=== PATIENT | female | born 1965 | race Caucasian/White ===

== ENCOUNTER 2018-07-11 12:15 | Inpatient (IN) ==
--- NOTE | 2018-07-11 12:56 | ED ---
HPI General Chief complaint: Shortness of Breath/Dyspnea Stated complaint: Body Pain Complaint Time Seen by Provider: 07/11/18 12:26 Source: patient and RN notes reviewed Limitations: no limitations History of Present Illness HPI narrative: 53-year-old female presents to the emergency department stating she has "all over swelling" for 2 weeks. She reports swelling to her legs, abdomen, face. She also reports upper abdominal pain for 1 week. She states the current pain is 8/10. When asked to describe it she states it is "out". She states she was short of breath this morning, but she states that she is no longer short of breath. She denies any chest pain. No previous surgeries. When reviewing the chart, it appears the patient was last here in 2011 and had history of alcoholism and alcohol induced pancreatitis. She also an unconfirmed history of stroke and seizure disorder. She was admitted to rehab for Wernicke Korsakoff type pathology due to her alcoholism. However, she denies any history of liver disease. She states she used to drink alcohol, but has not drank since 2009. Patient states she is not currently on any medications. She states her abdomen is distended. She also states that she has trouble moving her legs and states they "do not work". However she states she has had this issue for a long time, but has been worse for the past month. It appears back in 2011, she had the same issue with difficulty to ambulate at that time. Moderate severity. Onset (ago): week(s) (2) Location: abdomen Radiation: non-radiation Severity: moderate Severity scale (1-10): 8 Quality: aching Pain Consistency: constant Relieving factors: none Exacerbating factors: none Associated symptoms: Reports shortness of breath and weakness; Denies confusion , chest pain, fever/chills, headaches, nausea/vomiting and syncope Related Data Home Medications Medication Instructions Recorded Confirmed No Known Home Medications 07/11/18 07/11/18 Allergies Allergy/AdvReac Type Severity Reaction Status Date / Time doxycycline Allergy Severe Lethargy Verified 07/11/18 12:43 minocycline Allergy Severe Lethargy Verified 07/11/18 12:43 Sulfa (Sulfonamide Allergy Severe RASH Verified 07/11/18 12:43 Antibiotics) tigecycline Allergy Severe Lethargy Verified 07/11/18 12:43 Review of Systems ROS: all other systems reviewed are negative [facility] Medical History Medical History SVT (supraventricular tachycardia) (Acute) Surgical History Surgical History No history of previous surgery (Acute) Social History Social History Substance History: No History of Abuse Second Hand Smoke Exposure: No Smoking Status: Never smoker Tobacco Type: Cigarettes How Often Do You Have a Drink Containing Alcohol: Never Recent Travel in [facility] within the Last 8 Weeks: No Recent Out of Country Travel within the Last 8 Weeks: No Immunization History Tetanus Immunization: >5 Years Exam Narrative Exam Narrative: GENERAL: Well-nourished, well-developed female patient, afebrile. SKIN: Focused skin assessment warm/dry. HEAD: Normocephalic. Atraumatic. EYES: No scleral icterus. No injection or drainage. NECK: Supple, trachea midline. No JVD or lymphadenopathy. CARDIOVASCULAR: Regular rate and rhythm without murmurs, gallops, or rubs. RESPIRATORY: Breath sounds equal bilaterally. No accessory muscle use. Lung sounds are clear to auscultation GASTROINTESTINAL: Abdomen soft and nondistended. She reports tenderness over the epigastric region MUSCULOSKELETAL: No cyanosis. 2+ bilateral lower extremity edema. BACK: Nontender without obvious deformity. No CVA tenderness. Course Initial Documented Vital Signs Temperature 97.7 F 07/11/18 12:21 Pulse Rate 89 07/11/18 12:21 Respiratory Rate 16 07/11/18 12:21 Blood Pressure 116/60 07/11/18 12:21 Pulse Oximetry 99 07/11/18 12:21 Last Documented Vital Signs Temperature 98.0 F 07/13/18 04:00 Pulse Rate 76 07/13/18 06:18 Respiratory Rate 18 07/13/18 06:18 Blood Pressure 101/61 07/13/18 06:18 Pulse Oximetry 96 07/13/18 06:18 Medical Decision Making TANVI Attestation TANVI supervised visit: Yes Attestation: No signs of acute surgical abdomen or airway compromise MDM Narrative Medical decision making narrative: 53-year-old female presents to the emergency department for evaluation of swelling, shortness of breath this morning, abdominal pain. According the chart, she has history of alcoholism and pancreatitis. She had issues with her legs back in 2012 as well. She does not follow with a primary care physician. IV access obtained. EKG, CBC, CMP, lipase, magnesium, CK, troponin, PTT, PT/INR, alcohol level, UA are ordered and pending. Chest x-ray, CT abdomen/pelvis with IV contrast ordered and pending. EKG shows sinus rhythm, heart rate 75, no acute ST changes. CBC shows no acute abnormality. CMP shows hypokalemia at 2.8, bilirubin 1.6, AST 51. Lipase is 48. Magnesium is 2.2. CK is 56. Troponin is less than 0.02. BNP is 42. PTT is 24.0. PT/INR is 11.4/1.1. Alcohol level is less than 3. Chest x-ray shows no acute cardiopulmonary disease. CT abdomen/pelvis shows Enlarged fatty liver ; Large amount of ascites; Thick-walled nondistended gallbladder with pericholecystic fluid. If there is clinical concern for acute cholecystitis, a hepatobiliary scan may be helpful to confirm cystic duct obstruction; Retroperitoneal lymphadenopathy is nonspecific; Mild diffuse wall thickening involving the descending colon, sigmoid colon and rectum raising possibility of mild colitis. Clinical correlation is recommended; Severe ureteropelvicaliectasis on the right secondary to a large calcified obstructing distal ureteral calculus at the S1 level measuring 16 mm; Small right kidney with diffuse cortical thinning related to probable chronic obstruction; Calcified nonobstructing right renal calculi; 4.7 x 1.7 x 2.3 cm right adrenal nodule which is nonspecific; Chronic calcific pancreatitis; Degenerative changes and scoliosis of the thoracolumbar spine. Blood cultures are ordered and pending. Patient is given Zosyn 3.375 g IV for possible cholecystitis. Patient will be admitted for hypokalemia, possible cholecystitis, 16 mm ureteral calculus, and needs further work up for bilateral leg weakness. Medical Screen Exam Complete: Yes Emergency Medical Condition: Yes Differential Diagnosis Differential Diagnosis: Acute pancreatitis versus liver cirrhosis versus liver failure versus ascites versus CHF versus ACS versus pneumonia Medical Records Medical records reviewed: Yes I reviewed the patient's medical records. Lab Data Result diagrams: 07/12/18 09:29 07/12/18 09:29 Lab Results 01/10/19 01/10/19 01/10/19 Range/Units 12:45 12:45 12:45 WBC 4.1 (4.0-11.0) th/mm3 RBC 3.17 L (4.00-5.30) mil/mm3 Hgb 12.2 (11.6-15.3) gm/dL Hct 35.0 (35.0-46.0) % MCV 110.5 H (80.0-100.0) fL MCH 38.5 H (27.0-34.0) pg MCHC 34.8 (32.0-36.0) % RDW 14.6 (11.6-17.2) % Plt Count 204 (150-450) th/mm3 MPV 7.8 (7.0-11.0) fL Neut % (Auto) 67.4 (16.0-70.0) % Lymph % (Auto) 18.4 (9.0-44.0) % Mclean % (Auto) 13.2 H (0.0-8.0) % Eos % (Auto) 0.3 (0.0-4.0) % Baso % (Auto) 0.7 (0.0-2.0) % Neut # (Auto) 2.8 (1.8-7.7) th/mm3 Lymph # (Auto) 0.8 L (1.0-4.8) th/mm3 Mclean # (Auto) 0.5 (0.0-0.9) th/mm3 Eos # (Auto) 0.0 (0.0-0.4) th/mm3 Baso # (Auto) 0.0 (0.0-0.2) th/mm3 WBC Differential . Differential Comment Auto diff final PT 11.4 (9.8-11.6) sec INR 1.1 Ratio APTT 24.0 (23.4-31.7) sec Sodium 143 (136-145) meq/L Potassium 2.8 L* (3.5-5.1) meq/L Chloride 110 H (98-107) meq/L Carbon Dioxide 26.7 (21.0-32.0) meq/L Anion Gap 6 (5-15) meq/L BUN 8 (7-18) mg/dL Creatinine 0.63 (0.50-1.00) mg/dL Estimated GFR Greater than 89 (>89) mL/min Random Glucose 95 (74-106) mg/dL Calcium 7.9 L (8.5-10.1) mg/dL Magnesium 2.2 (1.5-2.5) mg/dL Total Bilirubin 1.6 H (0.2-1.0) mg/dL AST 51 H (15-37) U/L ALT 38 (10-53) U/L Alkaline Phosphatase 253 H (45-117) U/L Total Creatine Kinase 56 (26-192) U/L Troponin I Less than 0.02 L (0.02-0.05) ng/mL B-Natriuretic Peptide (0-100) pg/mL Total Protein 6.1 L (6.4-8.2) g/dL Albumin 2.8 L (3.4-5.0) g/dL Lipase 48 L (73-393) U/L Vitamin B12 (193-986) pg/mL Folate (3.1-17.5) ng/mL Urine Color (Yellw/Straw) Urine Clarity (Clear) Urine pH (5.0-8.5) Ur Specific [place] (1.002-1.035) Urine Protein (Neg-Trace) mg/dL Urine Glucose (UA) (Negative) mg/dL Urine Ketones (Negative) mg/dL Urine Occult Blood (Negative) Urine Nitrate (Negative) Urine Bilirubin (Negative) Urine Urobilinogen (Less than 2) mg/dL Ur Leukocyte Esterase (Negative) Urine RBC (0-3) /hpf Urine WBC (0-5) /hpf Ur Squamous Epith Cells (0-5) /hpf Calcium Oxalate Crystal (None) /hpf Urine Bacteria (None) /hpf Micro UA Comment Ur Microscopic Review Urine Culture Comments Serum Alcohol Less than 3 (0-5) mg/dL Hep Bs Antigen (Nonreactive) Hep Bs Antibody mIU/mL Hep B Core IgM Ab (Nonreactive) Hep C IgG Ab (Nonreactive) 07/11/18 07/11/18 07/11/18 Range/Units 12:45 21:14 21:14 WBC (4.0-11.0) th/mm3 RBC (4.00-5.30) mil/mm3 Hgb (11.6-15.3) gm/dL Hct (35.0-46.0) % MCV (80.0-100.0) fL MCH (27.0-34.0) pg MCHC (32.0-36.0) % RDW (11.6-17.2) % Plt Count (150-450) th/mm3 MPV (7.0-11.0) fL Neut % (Auto) (16.0-70.0) % Lymph % (Auto) (9.0-44.0) % Mclean % (Auto) (0.0-8.0) % Eos % (Auto) (0.0-4.0) % Baso % (Auto) (0.0-2.0) % Neut # (Auto) (1.8-7.7) th/mm3 Lymph # (Auto) (1.0-4.8) th/mm3 Mclean # (Auto) (0.0-0.9) th/mm3 Eos # (Auto) (0.0-0.4) th/mm3 Baso # (Auto) (0.0-0.2) th/mm3 WBC Differential Differential Comment PT (9.8-11.6) sec INR Ratio APTT (23.4-31.7) sec Sodium (136-145) meq/L Potassium (3.5-5.1) meq/L Chloride (98-107) meq/L Carbon Dioxide (21.0-32.0) meq/L Anion Gap (5-15) meq/L BUN (7-18) mg/dL Creatinine (0.50-1.00) mg/dL Estimated GFR (>89) mL/min Random Glucose (74-106) mg/dL Calcium (8.5-10.1) mg/dL Magnesium (1.5-2.5) mg/dL Total Bilirubin (0.2-1.0) mg/dL AST (15-37) U/L ALT (10-53) U/L Alkaline Phosphatase (45-117) U/L Total Creatine Kinase (26-192) U/L Troponin I (0.02-0.05) ng/mL B-Natriuretic Peptide 42 (0-100) pg/mL Total Protein (6.4-8.2) g/dL Albumin (3.4-5.0) g/dL Lipase (73-393) U/L Vitamin B12 1918 H (193-986) pg/mL Folate Greater than 20.0 H (3.1-17.5) ng/mL Urine Color (Yellw/Straw) Urine Clarity (Clear) Urine pH (5.0-8.5) Ur Specific [place] (1.002-1.035) Urine Protein (Neg-Trace) mg/dL Urine Glucose (UA) (Negative) mg/dL Urine Ketones (Negative) mg/dL Urine Occult Blood (Negative) Urine Nitrate (Negative) Urine Bilirubin (Negative) Urine Urobilinogen (Less than 2) mg/dL Ur Leukocyte Esterase (Negative) Urine RBC (0-3) /hpf Urine WBC (0-5) /hpf Ur Squamous Epith Cells (0-5) /hpf Calcium Oxalate Crystal (None) /hpf Urine Bacteria (None) /hpf Micro UA Comment Ur Microscopic Review Urine Culture Comments Serum Alcohol (0-5) mg/dL Hep Bs Antigen Nonreactive (Nonreactive) Hep Bs Antibody 8.52 mIU/mL Hep B Core IgM Ab Nonreactive (Nonreactive) Hep C IgG Ab Nonreactive (Nonreactive) 07/12/18 07/12/18 07/12/18 Range/Units 04:12 09:29 09:29 WBC 3.1 L (4.0-11.0) th/mm3 RBC 2.74 L (4.00-5.30) mil/mm3 Hgb 10.3 L (11.6-15.3) gm/dL Hct 30.7 L (35.0-46.0) % MCV 112.2 H (80.0-100.0) fL MCH 37.7 H (27.0-34.0) pg MCHC 33.6 (32.0-36.0) % RDW 14.4 (11.6-17.2) % Plt Count 171 (150-450) th/mm3 MPV 7.5 (7.0-11.0) fL Neut % (Auto) 59.3 (16.0-70.0) % Lymph % (Auto) 24.1 (9.0-44.0) % Mclean % (Auto) 14.5 H (0.0-8.0) % Eos % (Auto) 1.3 (0.0-4.0) % Baso % (Auto) 0.8 (0.0-2.0) % Neut # (Auto) 1.8 (1.8-7.7) th/mm3 Lymph # (Auto) 0.7 L (1.0-4.8) th/mm3 Mclean # (Auto) 0.4 (0.0-0.9) th/mm3 Eos # (Auto) 0.0 (0.0-0.4) th/mm3 Baso # (Auto) 0.0 (0.0-0.2) th/mm3 WBC Differential . Differential Comment Auto diff final PT (9.8-11.6) sec INR Ratio APTT (23.4-31.7) sec Sodium 144 (136-145) meq/L Potassium 4.4 D (3.5-5.1) meq/L Chloride 111 H (98-107) meq/L Carbon Dioxide 26.5 (21.0-32.0) meq/L Anion Gap 7 (5-15) meq/L BUN 9 (7-18) mg/dL Creatinine 0.79 (0.50-1.00) mg/dL Estimated GFR 76 L (>89) mL/min Random Glucose 94 (74-106) mg/dL Calcium 8.2 L (8.5-10.1) mg/dL Magnesium (1.5-2.5) mg/dL Total Bilirubin 1.0 (0.2-1.0) mg/dL AST 47 H (15-37) U/L ALT 36 (10-53) U/L Alkaline Phosphatase 236 H (45-117) U/L Total Creatine Kinase (26-192) U/L Troponin I (0.02-0.05) ng/mL B-Natriuretic Peptide (0-100) pg/mL Total Protein 5.6 L (6.4-8.2) g/dL Albumin 2.4 L (3.4-5.0) g/dL Lipase (73-393) U/L Vitamin B12 (193-986) pg/mL Folate (3.1-17.5) ng/mL Urine Color [place] (Yellw/Straw) Urine Clarity Hazy H (Clear) Urine pH 5.0 (5.0-8.5) Ur Specific [place] Greater than 1.060 H (1.002-1.035) Urine Protein Negative (Neg-Trace) mg/dL Urine Glucose (UA) Negative (Negative) mg/dL Urine Ketones Negative (Negative) mg/dL Urine Occult Blood Negative (Negative) Urine Nitrate Positive H (Negative) Urine Bilirubin Negative (Negative) Urine Urobilinogen Less than 2 (Less than 2) mg/dL Ur Leukocyte Esterase Small H (Negative) Urine RBC 2 (0-3) /hpf Urine WBC 16 H (0-5) /hpf Ur Squamous Epith Cells 6 (0-5) /hpf Calcium Oxalate Crystal Few H (None) /hpf Urine Bacteria Occasional H (None) /hpf Micro UA Comment Culture indicated Ur Microscopic Review Not Reportable Urine Culture Comments Culture indicated Serum Alcohol (0-5) mg/dL Hep Bs Antigen (Nonreactive) Hep Bs Antibody mIU/mL Hep B Core IgM Ab (Nonreactive) Hep C IgG Ab (Nonreactive) Imaging Data Radiologist's impression: Abdomen Ultrasound 07/11/18 00:00 CONCLUSION: 1. Coarsened parenchymal echotexture with nodular hepatic contour. These findings can be seen in the setting of cirrhosis. Recommend clinical correlation. 2. Moderate amount of ascites, which may be related to underlying liver dysfunction. 3. Diffuse gallbladder wall thickening. This is a nonspecific finding, often seen in the setting of liver disease. No evidence of cholelithiasis. Negative sonographic Cherry sign. 4. Dilation of the common bile duct to 14 mm. If clinically warranted, MRCP could be performed for further evaluation. 5. Numerous calcifications within the pancreas, suggesting chronic pancreatitis. 6. Severe right hydronephrosis with right lower pole renal calculi. Lumbar Spine MRI 07/11/18 00:00 CONCLUSION: 1. Mild bilateral foraminal narrowing at L3-4, L4-5 and L5-S1 without spinal stenosis. 2. Degenerative disc disease L3-4, L4-5 and L5-S1. 3. No focal disc herniation. 4. No abnormal enhancing lesion. 5. Severe hydronephrosis on the right. Abdomen/Pelvis CT 07/11/18 12:38 CONCLUSION: 1. Enlarged fatty liver. 2. Large amount of ascites. 3. Thick-walled nondistended gallbladder with pericholecystic fluid. If there is clinical concern for acute cholecystitis, a hepatobiliary scan may be helpful to confirm cystic duct obstruction. 4. Retroperitoneal lymphadenopathy is nonspecific. 5. Mild diffuse wall thickening involving the descending colon, sigmoid colon and rectum raising possibility of mild colitis. Clinical correlation is recommended. 6. Severe ureteropelvicaliectasis on the right secondary to a large calcified obstructing distal ureteral calculus at the S1 level measuring 16 mm. 7. Small right kidney with diffuse cortical thinning related to probable chronic obstruction. 8. Calcified nonobstructing right renal calculi. 9. 4.7 x 1.7 x 2.3 cm right adrenal nodule which is nonspecific. 10. Chronic calcific pancreatitis. 11. Degenerative changes and scoliosis of the thoracolumbar spine. Chest X-Ray 07/11/18 12:38 CONCLUSION: No acute cardiopulmonary disease Discharge Plan Discharge Disposition Patient Disposition: ED Admit(ED Internal Use Only) Discharge Order Discharge Orders: ED Use Only Admit Order (Routine); Ordered 07/11/18 Ordered By: Samantha Davison Discharge Details Diagnosis: Acute hypokalemia, Cholecystitis, Calculus, ureteral, Bilateral leg weakness Physicians Team ED Provider: Kevin Oleary ED Midlevel Provider: Samantha Davison Primary Care Provider: Primary Care Wilbur,Supriya Attending Provider: Glenn Flynn Other Providers: Chadd Arreaga Status ED Status: Left Department Discharge Information Discharge Date/Time: 07/11/18 17:53
[2018-07-11 13:00] LABS: Baso % (Auto) 0.7 % (0.0-2.0); Eos % (Auto) 0.3 % (0.0-4.0); Hemoglobin 12.2 gm/dL (11.6-15.3); Lymph # (Auto) 0.8 th/mm3 (1.0-4.8); Lymph % (Auto) 18.4 % (9.0-44.0); Mean Corpuscular HGB Conc 34.8 % (32.0-36.0); Mean Corpuscular Hemoglobin 38.5 pg (27.0-34.0); Mean Corpuscular Volume 110.5 fL (80.0-100.0); Mean Platelet Volume 7.8 fL (7.0-11.0); Mono # (Auto) 0.5 th/mm3 (0.0-0.9); Mono % (Auto) 13.2 % (0.0-8.0); Neut # (Auto) 2.8 th/mm3 (1.8-7.7); Neut % (Auto) 67.4 % (16.0-70.0); Platelet Count 204 th/mm3 (150-450); Red Blood Count 3.17 mil/mm3 (4.00-5.30); Red Cell Distribution Width 14.6 % (11.6-17.2); White Blood Count 4.1 th/mm3 (4.0-11.0)
[2018-07-11 13:04] LABS: INR 1.1 Ratio; Prothrombin Time 11.4 sec (9.8-11.6)
[2018-07-11 13:15] LABS: Alanine Aminotransferase 38 U/L (10-53); Albumin 2.8 g/dL (3.4-5.0); Anion Gap 6 meq/L (5-15); Aspartate Aminotransferase 51 U/L (15-37); Blood Urea Nitrogen 8 mg/dL (7-18); Calcium 7.9 mg/dL (8.5-10.1); Carbon Dioxide 26.7 meq/L (21.0-32.0); Chloride 110 meq/L (98-107); Glomerular Filtration Rate Greater Than 89 mL/min (>89); Glucose,Random 95 mg/dL (74-106); Lipase 48 U/L (73-393); Magnesium 2.2 mg/dL (1.5-2.5); Sodium 143 meq/L (136-145)
[2018-07-11 13:18] LABS: Alkaline Phosphatase 253 U/L (45-117); Total Protein 6.1 g/dL (6.4-8.2)
[2018-07-11 13:21] LABS: Creatine Kinase 56 U/L (26-192); Potassium 2.8 meq/L (3.5-5.1)
--- NOTE | 2018-07-11 13:55 | XR ---
EXAM DATE: 07/11/2018 1:47 PM EST AGE/SEX: 53 years / Female INDICATIONS: Short of breath CLINICAL DATA: This is the patient's initial encounter. Patient reports that signs and symptoms have been present for 1 day and indicates a pain score of 0/10. MEDICAL/SURGICAL HISTORY: None. smoker None. COMPARISON: [facility] – [place], 10/06/[place]. . FINDINGS: A single AP view of the chest demonstrates the lungs to be symmetrically aerated without evidence of mass, infiltrate or effusion. The cardiomediastinal contours are unremarkable. Osseous structures a re intact. CONCLUSION: No acute cardiopulmonary disease Electronically signed by: Ernesto Hernandez MD Board Certified Radiologist 07/11/2018 1:53 PM EST
--- NOTE | 2018-07-11 14:27 | CT ---
EXAM DATE: 07/11/2018 2:04 PM EST AGE/SEX: 53 years / Female INDICATIONS: Right sided abdomen swelling and pain, swelling in both legs CLINICAL DATA: This is the patient's initial encounter. Patient reports that signs and symptoms have been present for 1 day and indicates a pain score of 8/10. MEDICAL/SURGICAL HISTORY: . Supra ventricular tachycardia None. ORAL CONTRAST: No oral contrast ingested. RADIATION DOSE: 6.64 CTDI (mGy) [place] [facility] [place]. [facility] [place] 04/27/20 11. . TECHNIQUE: Multiple contiguous axial images were obtained through the abdomen and pelvis following b olus infusion of 80 ml Omnipaque 350 (iohexol) nonionic water-soluble contrast as a single exam dos e. No oral contrast ingested. Using automated exposure control and adjustment of the mA and/or kV ac cording to patient size, radiation dose was kept as low as reasonably achievable to obtain optimal di agnostic quality images. DICOM format image data is available electronically for review and comparis on. FINDINGS: Lower Lungs: The visualized lower lungs are clear. Liver: The liver is enlarged and demonstrates diffuse fatty infiltration. No focal hepatic mass is no colleen. No biliary ductal dilatation is noted. The gallbladder is nondistended but its wall is diffusely thickened. Pericholecystic fluid is noted. If there is clinical concern for acute cholecystitis, a h epatobiliary scan may be helpful to confirm cystic duct obstruction. Spleen: Homogeneous density without enlargement. Pancreas: Diffuse calcifications are noted throughout the entire pancreas consistent with chronic ca lcific pancreatitis. Kidneys: There is severe ureteropelvicaliectasis on the right secondary to a large calcified obstruc ting distal ureteral calculus at the S1 level measuring 16 mm. Calcified nonobstructing right lower p ole renal calculi are also noted with the larger measuring 10 mm. The right kidney is small in size c ompared to the left and there is diffuse cortical thinning likely related to chronic obstruction. The left kidney is unremarkable without stone, mass or obstruction. Adrenal Glands: There is a 4.7 x 1.7 x 2.3 cm right adrenal nodule which is nonspecific. The left a drenal gland is unremarkable. Aorta: The aorta and proximal iliac vessels are grossly unremarkable without aneurysmal dilation. Bowel/Mesentery: Mild diffuse wall thickening is noted involving the descending and sigmoid colon as well as the rectum raising possibility of mild colitis. RectumAppendix is normal. There is a large a mount of ascites within the abdomen and pelvis. Abdominal Wall: Intact. Retroperitoneum: Retroperitoneal lymphadenopathy is noted and is nonspecific. Bladder: Contours are smooth. Reproductive Organs: No abnormal masses or calcifications seen. Inguinal: The inguinal region is unremarkable without evidence of adenopathy. Bony Structures: Degenerative changes and scoliosis of the thoracolumbar spine are noted. CONCLUSION: 1. Enlarged fatty liver. 2. Large amount of ascites. 3. Thick-walled nondistended gallbladder with pericholecystic fluid. If there is clinical concern fo r acute cholecystitis, a hepatobiliary scan may be helpful to confirm cystic duct obstruction. 4. Retroperitoneal lymphadenopathy is nonspecific. 5. Mild diffuse wall thickening involving the descending colon, sigmoid colon and rectum raising pos sibility of mild colitis. Clinical correlation is recommended. 6. Severe ureteropelvicaliectasis on the right secondary to a large calcified obstructing distal ure teral calculus at the S1 level measuring 16 mm. 7. Small right kidney with diffuse cortical thinning related to probable chronic obstruction. 8. Calcified nonobstructing right renal calculi. 9. 4.7 x 1.7 x 2.3 cm right adrenal nodule which is nonspecific. 10. Chronic calcific pancreatitis. 11. Degenerative changes and scoliosis of the thoracolumbar spine. Electronically signed by: Rico Isaacs MD Board Certified Radiologist 07/11/2018 2:26 PM EST
[2018-07-11] MEDS ORDERED: Piperacil/Tazo 3.375 GM Premix 3.375 GM/50 ML PIGGYBACK IV.SIG ONE (14:41)
--- NOTE | 2018-07-11 15:21 | P.HPFP ---
History of Present Illness Primary Care Physician: No Primary Care Physician Chief Complaint: weakness History of Present Illness: This is a 53-year-old white female with a past medical history of alcoholism now sober who presents to the ED due to weakness in her legs. He states that this is a chronic condition for her but worsened about 2 weeks ago. She realized that she could not lift her legs to get in her car and had issues with pressing the pedicles. She has to manually lift her legs in order to move. She is also having trouble putting on her socks and shoes. She normally uses a walker at home, but now it is hard to use it. She does have a history of neuropathy in her legs as well. She is unable to feel her calf muscles. She also has a history of falls and has chronic balance issues for years. A couple of days ago she started to not have any control over her bowels or bladder. She gets up to go to the rest room but then realizes that she has already urinated or either defecated on herself. She is also having abdominal pain that started about 10 days ago. She describes it as 8/10 aching pain in her right upper quadrant, nonradiating, steady, nothing makes it worse, nothing makes it better. No difference in pain with eating. Has not taken any pain medication for it. She has also noticed that she has had swelling in her legs for about a week. Her skin has stretched Zomax that her lower legs hurt. She has also had bloating to the point where she feels she looks like she is . This started around the same time. Her friend noticed that the right side of the patient's face was swollen today. PMH SVT gallbladder stones Coma in 2008, unable to remember why, maybe hx of CVA (neuro sx, unable to write legibly) History of alcoholism, quit in 2009 History of Wernicke's Korsakoff syndrome PSH wisdom teeth extraction FHx Father-decrease, unknown cause Mother- COPD, CHF, Social hx lives with herself in a house on disability, due to balance issues Smokes 1/2 ppd for 40yrs Alcohol- none, quit in 2009 Illicit drug use- none - Diagnosis (1) Calculus, ureteral (2) Bilateral leg weakness (3) Ascites (4) Thickening of wall of gallbladder (5) Acute hypokalemia (6) Nutrition, metabolism, and development symptoms (7) DVT prophylaxis Review of Systems Constitutional: Denies chills, Denies fever(s), Denies night sweats Eyes: Reports blurry vision Cardiovascular: Denies chest pain Respiratory: Reports shortness of breath (due to bloating and pressure in abdomen) Gastrointestinal: Reports abdominal pain, Reports loose stools (liquid discharge from rectum), Denies change in bowel habits, Denies vomiting PMFSH - History History Provided By: Patient - Medical History Medical History: Medical History (Last Reviewed 07/11/18 @ 12:52 by TYLER Castanon) SVT (supraventricular tachycardia) - Surgical History Surgical History: Surgical History (Last Reviewed 07/11/18 @ 12:52 by TYLER Castanon) No history of previous surgery - Tobacco History Second Hand Smoke Exposure: No Smoking Status: Never smoker - Alcohol History How Often Do You Have a Drink Containing Alcohol: Never - Substance Use History Substance History: No History of Abuse - Travel History Recent Travel in the [place] Within the Last 8 Weeks: No Recent Travel Out of the Country Within the Last 8 Weeks: No - Immunization History Tetanus Immunization: >5 Years Medications and Allergies Active Medications: Active Medications Piperacillin/Tazobactam/Dextrose (Zosyn 3.375 Gm Premix) 3.375 gm in 50 mls @ 100 mls/hr IV.SIG ONCE ONE Stop: 07/11/18 15:10 Last Admin: 07/11/18 14:59 Dose: 100 mls/hr Allergies Allergy/AdvReac Type Severity Reaction Status Date / Time doxycycline Allergy Severe Lethargy Verified 07/11/18 12:43 minocycline Allergy Severe Lethargy Verified 07/11/18 12:43 Sulfa (Sulfonamide Allergy Severe RASH Verified 07/11/18 12:43 Antibiotics) tigecycline Allergy Severe Lethargy Verified 07/11/18 12:43 Home Medications Medication Instructions Recorded Confirmed Type No Known Home Medications 07/11/18 07/11/18 History Exam Vital signs: Vital Signs 07/11/18 12:21 07/11/18 12:33 07/11/18 12:44 Temperature 97.7 F Pulse Rate 89 83 78 Respiratory Rate 16 18 Blood Pressure 116/60 120/77 Pulse Oximetry 99 98 07/11/18 12:45 07/11/18 14:40 Temperature Pulse Rate 82 Respiratory Rate 18 Blood Pressure 101/75 Pulse Oximetry 98 98 Intake & Output 07/10/18 07/11/18 07/11/18 18:59 06:59 18:59 Weight 49.895 kg Narrative: GENERAL: Thin white female sitting up in bed, in NAD SKIN: Warm and dry. HEAD: Atraumatic. Normocephalic. Swelling of R cheek. EYES: Pupils equal and round. No scleral icterus. No injection or drainage. ENT: No nasal bleeding or discharge. Mucous membranes pink and moist. NECK: Trachea midline. No JVD. CARDIOVASCULAR: Regular rate and rhythm. RESPIRATORY: No accessory muscle use. Clear to auscultation. Breath sounds equal bilaterally. GASTROINTESTINAL: Abdomen soft, tenderness of RUQ, distended, but not tense. + fluid wave. Hepatic and splenic margins not palpable. MUSCULOSKELETAL: Extremities without clubbing or cyanosis 2+ pitting edema to mid-shins No obvious deformities. NEUROLOGICAL: Awake and alert. No obvious cranial nerve deficits. Motor grossly within normal limits. Five out of 5 muscle strength in the arms. 3/5 strength in legs. Normal speech. decreased sensations below knees bilaterally PSYCHIATRIC: Appropriate mood and affect; insight and judgment normal. Results - Labs Result diagrams: 07/11/18 12:45 07/11/18 12:45 Abnormal lab results 07/11/18 07/11/18 Range/Units 12:45 12:45 RBC 3.17 L (4.00-5.30) mil/mm3 MCV 110.5 H (80.0-100.0) fL MCH 38.5 H (27.0-34.0) pg [place] % (Auto) 13.2 H (0.0-8.0) % Lymph # (Auto) 0.8 L (1.0-4.8) th/mm3 Potassium 2.8 L* (3.5-5.1) meq/L Chloride 110 H (98-107) meq/L Calcium 7.9 L (8.5-10.1) mg/dL Total Bilirubin 1.6 H (0.2-1.0) mg/dL AST 51 H (15-37) U/L Alkaline Phosphatase 253 H (45-117) U/L Troponin I Less than 0.02 L (0.02-0.05) ng/mL Total Protein 6.1 L (6.4-8.2) g/dL Albumin 2.8 L (3.4-5.0) g/dL Lipase 48 L (73-393) U/L Short CBC 07/11/18 Range/Units 12:45 WBC 4.1 (4.0-11.0) th/mm3 Hgb 12.2 (11.6-15.3) gm/dL Hct 35.0 (35.0-46.0) % Plt Count 204 (150-450) th/mm3 BMP 07/11/18 12:45 Sodium 143 Potassium 2.8 L* Chloride 110 H Carbon Dioxide 26.7 BUN 8 Creatinine 0.63 Calcium 7.9 L Cardiac Enzymes 07/11/18 Range/Units 12:45 Total Creatine Kinase 56 (26-192) U/L Troponin I Less than 0.02 L (0.02-0.05) ng/mL Liver Function 07/11/18 Range/Units 12:45 Total Bilirubin 1.6 H (0.2-1.0) mg/dL AST 51 H (15-37) U/L ALT 38 (10-53) U/L Alkaline Phosphatase 253 H (45-117) U/L Albumin 2.8 L (3.4-5.0) g/dL - Imaging Impressions Abdomen/Pelvis CT 07/11/18 12:38 CONCLUSION: 1. Enlarged fatty liver. 2. Large amount of ascites. 3. Thick-walled nondistended gallbladder with pericholecystic fluid. If there is clinical concern for acute cholecystitis, a hepatobiliary scan may be helpful to confirm cystic duct obstruction. 4. Retroperitoneal lymphadenopathy is nonspecific. 5. Mild diffuse wall thickening involving the descending colon, sigmoid colon and rectum raising possibility of mild colitis. Clinical correlation is recommended. 6. Severe ureteropelvicaliectasis on the right secondary to a large calcified obstructing distal ureteral calculus at the S1 level measuring 16 mm. 7. Small right kidney with diffuse cortical thinning related to probable chronic obstruction. 8. Calcified nonobstructing right renal calculi. 9. 4.7 x 1.7 x 2.3 cm right adrenal nodule which is nonspecific. 10. Chronic calcific pancreatitis. 11. Degenerative changes and scoliosis of the thoracolumbar spine. Chest X-Ray 07/11/18 12:38 CONCLUSION: No acute cardiopulmonary disease Caprini VTE Risk Assessment Caprini VTE Risk Assessment: Moderate/High Risk (score >= 2) Caprini Risk Assessment Model: Point Value = 1 Point Value = 2 Point Value = 3 Point Value = 5 Age 41-60 Minor surgery BMI > 25 kg/m2 Swollen legs Varicose veins or History of unexplained or recurrent spontaneous Oral contraceptives or hormone replacement Sepsis (< 1 month) Serious lung disease, including pneumonia (< 1 month) Abnormal pulmonary function Acute myocardial infarction Congestive heart failure (< 1 month) History of inflammatory bowel disease Medical patient at bed rest Age 61-74 Arthroscopic surgery Major open surgery (> 45 min) Laparoscopic surgery (> 45 min) Malignancy Confined to bed (> 72 hours) Immobilizing plaster cast Central venous access Age >= 75 History of VTE Family history of VTE Factor V Leiden Prothrombin [id number] Lupus anticoagulant Anticardiolipin antibodies Elevated serum homocysteine Heparin-induced thrombocytopenia Other congenital or acquired thrombophilia Stroke (< 1 month) Elective arthroplasty Hip, pelvis, or leg fracture Acute spinal cord injury (< 1 month) Prophylaxis Regimen: Total Risk Factor Score Risk Level Prophylaxis Regimen 0-1 Low Early ambulation 2 Moderate Order ONE of the following: *Sequential Compression Device (SCD) *Heparin 5000 units SQ BID 3-4 Higher Order ONE of the following medications: *Heparin 5000 units SQ TID *Enoxaparin/Lovenox 40 mg SQ daily (WT < 150 kg, CrCl > 30 mL/min) *Enoxaparin/Lovenox 30 mg SQ daily (WT < 150 kg, CrCl > 10-29 mL/min) *Enoxaparin/Lovenox 30 mg SQ BID (WT < 150 kg, CrCl > 30 mL/min) AND/OR *Sequential Compression Device (SCD) 5 or more Highest Order ONE of the following medications: *Heparin 5000 units SQ TID (Preferred with Epidurals) *Enoxaparin/Lovenox 40 mg SQ daily (WT < 150 kg, CrCl > 30 mL/min) *Enoxaparin/Lovenox 30 mg SQ daily (WT < 150 kg, CrCl > 10-29 mL/min) *Enoxaparin/Lovenox 30 mg SQ BID (WT < 150 kg, CrCl > 30 mL/min) AND *Sequential Compression Device (SCD) Assessment and Plan - Assessment (1) Calculus, ureteral Code(s): N20.1 - Calculus of ureter Status: Acute Plan: Patient with RUQ abdominal pain. No right flank pain on exam. CT abdomen pelvis on admission shows right kidney with diffuse cortical thinning related to probable colonic obstruction, calcified nonobstructing right renal calculi. Severe ureteropelvicaliectasis on the right secondary to a large calcified obstructing distal ureteral calculus at the S1 level measuring 16 mm. 4.7 cm nonspecific left adrenal nodule -Urology consulted, appreciate recommendations -N.p.o. after midnight -Cystoscopy, right retrograde pyelogram and right ureteral stent placement tomorrow -Conservative management of left adrenal nodule with follow-up imaging (2) Bilateral leg weakness Code(s): R29.898 - Other symptoms and signs involving the musculoskeletal system Status: Acute Plan: Patient with chronic LE weakness that worsened a week ago. Also having urinary and fecal incontinence for the past couple of days. Rule out cauda equina syndrome. Balance and gait issues are likely due to lingering effects of Wernicke's Korsakoff syndrome. MRI lumbar spine with and without contrast on admission does not show any indication of compression on the conus medullaris or cauda equina -Continue to evaluate for other etiologies of patient's bilateral weakness (3) Ascites Code(s): R18.8 - Other ascites Status: Acute Plan: Patient with abdominal distention along with LE edema for the past 2 weeks. Has history of alcoholism. Cirrhosis not seen on abdominal CT (fatty liver) BNP WNL at 42 -Spironolactone 100 mg x1 given -Ordered diagnostic paracentesis -Will await results of paracentesis to determine next steps in treatment -Ultrasound abdomen showed coarsened parenchymal echotexture with nodular hepatic contour. These findings can be seen in the setting of cirrhosis. (4) Thickening of wall of gallbladder Code(s): K82.8 - Other specified diseases of gallbladder Status: Acute Plan: CT abdomen pelvis shows Thick-walled nondistended gallbladder with pericholecystic fluid. Ultrasound of the abdomen showed bladder wall thickening, no evidence of cholelithiasis, negative sonographic Cherry sign. Relation of the common bile duct to 14 mm. Total bilirubin elevated at 1.6 Alkaline phosphatase elevated at 253 -Patient is having RUQ abdominal pain, but no fevers, no leukocytosis. -We will continue to monitor to determine whether further studies should be performed (5) Acute hypokalemia Code(s): E87.6 - Hypokalemia Status: Acute Plan: Hyperkalemic on admission at 2.8 -Given KCl 40 mEq and ED -KCl 40 mEq to be given at 1800 -BMP in a.m. (6) Nutrition, metabolism, and development symptoms Code(s): R63.8 - Other symptoms and signs concerning food and fluid intake Status: Acute Plan: Fluids: tolerating PO/NS @ 100ml/hr to be given at midnight while patient is n.p.o. Electrolytes: monitor and replete as needed, see above for hyperkalemia plan Nutrition: Regular diet now, n.p.o. after midnight GI Prophylaxis: None indicated at this time (7) DVT prophylaxis Status: Acute Plan: DVT Prophylaxis: Early ambulation. Heparin 5000U subQ q12hr
[2018-07-11] MEDS ORDERED: Bisacodyl 10 MG Supp RECTAL PRN (15:58)
[2018-07-11] MEDS ORDERED: Acetaminophen 325 MG Tablet PO PRN (15:58)
--- NOTE | 2018-07-11 16:53 | P.CONURO ---
History of Present Illness Service: Consult date: 07/11/18 Requesting Physician: Kendal Monzon Reason for Consult: Obstructing right ureteral calculus Primary Care Provider: No Primary Care Physician History of Present Illness: 53-year-old female who presented to the emergency room with complaints of generalized swelling and upper abdominal pain. Preliminary workup included a CT scan of the abdomen and pelvis that demonstrated an obstructing 1.6 cm right ureteral calculus at the S1 level causing right-sided hydroureteronephrosis. Other findings include multiple right lower pole renal calculi with the largest measuring 1 cm and cortical thinning on the right side consistent with chronic obstruction. In addition there was a 4.7 cm nonspecific right adrenal nodule noted. A urology consult was placed for further recommendations. Patient has been afebrile. She denies a history of dysuria or gross hematuria. Review of Systems All other systems reviewed negative except as stated in HPI [facility] - History History Provided By: Patient - Medical History Medical History: Medical History (Last Reviewed 07/11/18 @ 12:52 by TYLER Castanon) SVT (supraventricular tachycardia) - Surgical History Surgical History: Surgical History (Last Reviewed 07/11/18 @ 12:52 by TYLER Castanon) No history of previous surgery - Tobacco History Second Hand Smoke Exposure: No Smoking Status: Never smoker - Alcohol History How Often Do You Have a Drink Containing Alcohol: Never - Substance Use History Substance History: No History of Abuse - Travel History Recent Travel in the [place] Within the Last 8 Weeks: No Recent Travel Out of the Country Within the Last 8 Weeks: No - Immunization History Tetanus Immunization: >5 Years Medications and Allergies Active Medications: Active Medications Acetaminophen (Tylenol) 650 mg PO Q4H PRN PRN Reason: Temp > 100.4 Al Hydroxide/Mg Hydroxide (Milk Of Magnesia Liq) 30 ml PO Q12H PRN PRN Reason: Mild Constipation Bisacodyl (Dulcolax Supp) 10 mg RECTAL DAILY PRN PRN Reason: SEVERE CONSITIPATION Heparin Sodium (Porcine) (Heparin Inj) 5,000 units SQ Q12H SHELLY Lactulose (Lactulose Liq) 30 ml PO DAILY PRN PRN Reason: SEVERE CONSITIPATION Ondansetron HCl (Zofran Inj) 4 mg IV.PUSH Q6H PRN PRN Reason: NAUSEA OR VOMITING Potassium Chloride (Kcl) 40 meq PO ONCE ONE Stop: 07/11/18 18:01 Senna/Docusate Sodium (Yasmine-Colace) 1 tab PO BID SHELLY Sennosides (Senokot) 17.2 mg PO Q12H PRN PRN Reason: Moderate Constipation Sodium Chloride (Ns Flush) 2 ml IV.FLUSH BID SHELLY Sodium Chloride (Ns Flush) 2 ml IV.FLUSH PRN PRN PRN Reason: FLUSH AFTER USING IV ACCESS Allergies Allergy/AdvReac Type Severity Reaction Status Date / Time doxycycline Allergy Severe Lethargy Verified 07/11/18 12:43 minocycline Allergy Severe Lethargy Verified 07/11/18 12:43 Sulfa (Sulfonamide Allergy Severe RASH Verified 07/11/18 12:43 Antibiotics) tigecycline Allergy Severe Lethargy Verified 07/11/18 12:43 Home Medications Medication Instructions Recorded Confirmed Type No Known Home Medications 07/11/18 07/11/18 History Physical Exam Vital Signs - 24 hr 07/11/18 12:21 07/11/18 12:33 07/11/18 12:44 Temperature 97.7 F Pulse Rate 89 83 78 Respiratory Rate 16 18 Blood Pressure 116/60 120/77 Pulse Oximetry 99 98 07/11/18 12:45 07/11/18 14:40 Temperature Pulse Rate 82 Respiratory Rate 18 Blood Pressure 101/75 Pulse Oximetry 98 98 Physical Exam: GENERAL: This is a well-nourished, well-developed patient, in no apparent distress. SKIN: No rashes, ecchymoses or lesions. Cool and dry. HEAD: Atraumatic. Normocephalic. No temporal or scalp tenderness. EYES: Pupils equal round and reactive. Extraocular motions intact. No scleral icterus. No injection or drainage. ENT: Nose without bleeding, purulent drainage or septal hematoma. Throat without erythema, tonsillar hypertrophy or exudate. Uvula midline. Airway patent. NECK: Trachea midline. No JVD or lymphadenopathy. Supple, nontender, no meningeal signs. CARDIOVASCULAR: Regular rate and rhythm without murmurs, gallops, or rubs. RESPIRATORY: Clear to auscultation. Breath sounds equal bilaterally. No wheezes , rales, or rhonchi. GASTROINTESTINAL: Abdomen soft, non-tender, nondistended. No hepato-splenomegaly , or palpable masses. No guarding. GENITOURINARY: No CVA tenderness, bladder not distended MUSCULOSKELETAL: Extremities without clubbing, cyanosis, or edema. No joint tenderness, effusion, or edema noted. No calf tenderness. Negative Homans sign bilaterally. NEUROLOGICAL: Awake and alert. Cranial nerves II through XII intact. Motor and sensory grossly within normal limits. Five out of 5 muscle strength in all muscle groups. Normal speech. Laboratory Results - last 24 hr 07/11/18 07/11/18 07/11/18 12:45 12:45 12:45 WBC 4.1 RBC 3.17 L Hgb 12.2 Hct 35.0 MCV 110.5 H MCH 38.5 H MCHC 34.8 RDW 14.6 Plt Count 204 MPV 7.8 Neut % (Auto) 67.4 Lymph % (Auto) 18.4 [place] % (Auto) 13.2 H Eos % (Auto) 0.3 Baso % (Auto) 0.7 Neut # (Auto) 2.8 Lymph # (Auto) 0.8 L [place] # (Auto) 0.5 Eos # (Auto) 0.0 Baso # (Auto) 0.0 WBC Differential . Differential Comment Auto diff final PT 11.4 INR 1.1 APTT 24.0 Sodium 143 Potassium 2.8 L* Chloride 110 H Carbon Dioxide 26.7 Anion Gap 6 BUN 8 Creatinine 0.63 Estimated GFR Greater than 89 Random Glucose 95 Calcium 7.9 L Magnesium 2.2 Total Bilirubin 1.6 H AST 51 H ALT 38 Alkaline Phosphatase 253 H Total Creatine Kinase 56 Troponin I Less than 0.02 L B-Natriuretic Peptide Total Protein 6.1 L Albumin 2.8 L Lipase 48 L Serum Alcohol Less than 3 07/11/18 12:45 WBC RBC Hgb Hct MCV MCH MCHC RDW Plt Count MPV Neut % (Auto) Lymph % (Auto) [place] % (Auto) Eos % (Auto) Baso % (Auto) Neut # (Auto) Lymph # (Auto) [place] # (Auto) Eos # (Auto) Baso # (Auto) WBC Differential Differential Comment PT INR APTT Sodium Potassium Chloride Carbon Dioxide Anion Gap BUN Creatinine Estimated GFR Random Glucose Calcium Magnesium Total Bilirubin AST ALT Alkaline Phosphatase Total Creatine Kinase Troponin I B-Natriuretic Peptide 42 Total Protein Albumin Lipase Serum Alcohol Result Diagrams: 07/11/18 12:45 07/11/18 12:45 Imaging: ITS Impressions Abdomen/Pelvis CT 07/11/18 12:38 CONCLUSION: 1. Enlarged fatty liver. 2. Large amount of ascites. 3. Thick-walled nondistended gallbladder with pericholecystic fluid. If there is clinical concern for acute cholecystitis, a hepatobiliary scan may be helpful to confirm cystic duct obstruction. 4. Retroperitoneal lymphadenopathy is nonspecific. 5. Mild diffuse wall thickening involving the descending colon, sigmoid colon and rectum raising possibility of mild colitis. Clinical correlation is recommended. 6. Severe ureteropelvicaliectasis on the right secondary to a large calcified obstructing distal ureteral calculus at the S1 level measuring 16 mm. 7. Small right kidney with diffuse cortical thinning related to probable chronic obstruction. 8. Calcified nonobstructing right renal calculi. 9. 4.7 x 1.7 x 2.3 cm right adrenal nodule which is nonspecific. 10. Chronic calcific pancreatitis. 11. Degenerative changes and scoliosis of the thoracolumbar spine. Chest X-Ray 07/11/18 12:38 CONCLUSION: No acute cardiopulmonary disease Assessment and Plan - Assessment (1) Right ureteral calculus Code(s): N20.1 - Calculus of ureter Status: Acute (2) Renal calculus, right Code(s): N20.0 - Calculus of kidney Status: Acute (3) Hydronephrosis, right Code(s): N13.30 - Unspecified hydronephrosis Status: Acute - Plan Urologic impression: 1. Right hydronephrosis secondary to a 1.6 cm obstructing right distal ureteral calculus 2. Multiple right lower pole renal calculi 3. 4.7 cm nonspecific left adrenal nodule Plan: 1. Keep patient n.p.o. after midnight 2. We will schedule the patient for cystoscopy, right retrograde pyelogram and right ureteral stent placement for tomorrow. Risks and benefits discussed with the patient. 3. Conservative management of the nonspecific left adrenal nodule with follow- up imaging to assess stability.
[2018-07-11] MEDS: Heparin - SQ 10,000 UNITS/ML Vial SQ SCH (16:54)
[2018-07-11] MEDS ORDERED: Gadobutrol PF 7.5 MMOL/7.5 ML Vial (for RAD) IV.SIG ONE (17:20)
--- NOTE | 2018-07-11 17:24 | US ---
EXAM DATE: 07/11/2018 5:13 PM EST AGE/SEX: 53 years / Female INDICATIONS: Abdominal pain and abnormal prior imaging. CLINICAL DATA: This is the patient's initial encounter. Patient reports that signs and symptoms have been present for 4 - 6 days and indicates a pain score of 6/10. MEDICAL/SURGICAL HISTORY: . Supraventricular tachycardia. None. COMPARISON: [facility] – [place] ABDOMEN & PELVIS W CONTRAST, 07/11/2018. . MEASUREMENTS: Liver:__ 14.7 cm. Common Bile Duct:___ 14 mm. Right Kidney:___9.5 x 4.3 x 4.1 cm. Left Kidney:___10.3 x 5.9 x 5.8 cm. Spleen:___10.2 cm. FINDINGS: Liver: Increased echogenicity with coarsened echotexture. Nodular contour. No focal lesion identifie d. Portal Vein: Hepatopedal flow seen in portal vein. Common Duct: Dilated common bile duct Gallbladder: No evidence of cholelithiasis. Diffuse gallbladder wall thickening, measuring up to 6 mm. Negative sonographic Cherry's sign. Pancreas: Abnormal appearance of the pancreas with numerous calcifications, as seen on CT. Right Kidney: There is severe right hydronephrosis, as was seen on today's CT. Lower pole renal calc ricky measuring up to 1.2 cm. Left Kidney: No hydronephrosis. No calculus or mass identified. Ascites: Moderate ascites. Pleural Effusion: None Spleen: No focal lesion. Aorta: Visualized portions are nonaneurysmal. IVC: Within normal limits Other: None. CONCLUSION: 1. Coarsened parenchymal echotexture with nodular hepatic contour. These findings can be seen in the setting of cirrhosis. Recommend clinical correlation. 2. Moderate amount of ascites, which may be related to underlying liver dysfunction. 3. Diffuse gallbladder wall thickening. This is a nonspecific finding, often seen in the setting of liver disease. No evidence of cholelithiasis. Negative sonographic Cherry sign. 4. Dilation of the common bile duct to 14 mm. If clinically warranted, MRCP could be performed for f urther evaluation. 5. Numerous calcifications within the pancreas, suggesting chronic pancreatitis. 6. Severe right hydronephrosis with right lower pole renal calculi. Electronically signed by: Echo Damian MD Board Certified Radiologist 07/11/2018 5:23 PM EST
--- NOTE | 2018-07-11 17:45 | P.HPFP ---
History of Present Illness Primary Care Physician: No Primary Care Physician History of Present Illness: discussed and reviewed dr Lynn's history as documented in her H&P from today. Brief summary: 53 yo F with no PCP and history of severe EtOH abuse(stopped years ago), has previous admissions with korsakoff/wernickes and baseline gait deficits, presents with progressive lower extremity weakness (weeks), bowel/bladder incontinence (days). She is complaining of generalized swelling and some RUQ pain radiating to back. Has history of HBV, unknown status) - Diagnosis (1) Acute hypokalemia (2) Cholecystitis (3) Calculus, ureteral (4) Bilateral leg weakness (5) Ascites (6) Nutrition, metabolism, and development symptoms (7) DVT prophylaxis Inpatient Certification: I certify that the inpatient services were ordered in accordance with Medicare regulations governing the order. This includes certification that hospital inpatient services are reasonable and necessary and in the case of services not specified as inpatient-only under 42 CFR 419.22(n), that they are appropriately provided as inpatient services in accordance to with the 2-midnight benchmark under 43 CFR 412.3(e) Estimated Total Length of Stay (Days): 4 Plans for Post Hospital Care: Not yet determined PMFSH - History History Provided By: Patient - Medical History Medical History: Medical History (Last Reviewed 07/11/18 @ 12:52 by TYLER Castanon) SVT (supraventricular tachycardia) - Surgical History Surgical History: Surgical History (Last Reviewed 07/11/18 @ 12:52 by TYLER Castanon) No history of previous surgery - Tobacco History Second Hand Smoke Exposure: No Smoking Status: Never smoker - Alcohol History How Often Do You Have a Drink Containing Alcohol: Never - Substance Use History Substance History: No History of Abuse - Travel History Recent Travel in the [place] Within the Last 8 Weeks: No Recent Travel Out of the Country Within the Last 8 Weeks: No - Immunization History Tetanus Immunization: >5 Years Medications and Allergies Active Medications: Active Medications Acetaminophen (Tylenol) 650 mg PO Q4H PRN PRN Reason: Temp > 100.4 Al Hydroxide/Mg Hydroxide (Milk Of Magnneymar Liq) 30 ml PO Q12H PRN PRN Reason: Mild Constipation Bisacodyl (Dulcolax Supp) 10 mg RECTAL DAILY PRN PRN Reason: SEVERE CONSITIPATION Heparin Sodium (Porcine) (Heparin Inj) 5,000 units SQ Q12H [facility] Last Admin: 07/11/18 16:54 Dose: 5,000 units Lactulose (Lactulose Liq) 30 ml PO DAILY PRN PRN Reason: SEVERE CONSITIPATION Ondansetron HCl (Zofran Inj) 4 mg IV.PUSH Q6H PRN PRN Reason: NAUSEA OR VOMITING Potassium Chloride (K-Dur) 40 meq PO ONCE ONE Stop: 07/11/18 18:01 Senna/Docusate Sodium (Yasmine-Colace) 1 tab PO BID [facility] Sennosides (Senokot) 17.2 mg PO Q12H PRN PRN Reason: Moderate Constipation Sodium Chloride (Ns Flush) 2 ml IV.FLUSH BID [facility] Sodium Chloride (Ns Flush) 2 ml IV.FLUSH PRN PRN PRN Reason: FLUSH AFTER USING IV ACCESS Allergies Allergy/AdvReac Type Severity Reaction Status Date / Time doxycycline Allergy Severe Lethargy Verified 07/11/18 12:43 minocycline Allergy Severe Lethargy Verified 07/11/18 12:43 Sulfa (Sulfonamide Allergy Severe RASH Verified 07/11/18 12:43 Antibiotics) tigecycline Allergy Severe Lethargy Verified 07/11/18 12:43 Home Medications Medication Instructions Recorded Confirmed Type No Known Home Medications 07/11/18 07/11/18 History Exam Vital signs: Vital Signs 07/11/18 12:21 07/11/18 12:33 07/11/18 12:44 Temperature 97.7 F Pulse Rate 89 83 78 Respiratory Rate 16 18 Blood Pressure 116/60 120/77 Pulse Oximetry 99 98 07/11/18 12:45 07/11/18 14:40 07/11/18 16:55 Temperature Pulse Rate 82 81 Respiratory Rate 18 18 Blood Pressure 101/75 107/74 Pulse Oximetry 98 98 Intake & Output 07/10/18 07/11/18 07/11/18 18:59 06:59 18:59 Intake Total 50 / 50 Balance 50 / 50 Weight 49.895 kg Intake: IV 50 / 50 Zosyn 3.375 GM Premix 3.375 gm 50 / 50 In 50 ml @ 100 mls/hr IV.SIG ONCE ONE Rx#:[id number] - Constitutional no acute distress, chronically ill appearing, cooperative - Routine HEENT Exam Head: Present: normocephalic, atraumatic Eye: Present: EOMI, PERRL ENT: Present: mucous membranes moist - Routine Neck Exam Present: supple - Routine Respiratory Exam Present: CTA bilaterally. Absent: accessory muscle use, stridor, wheezes, crackles - Routine Cardiovascular Exam Present: RRR, S1, S2. Absent: murmur - Routine Abdominal Exam Present: normoactive bowel sounds, distended. Absent: tenderness Comments: distended but not tense ascites, murphys negative, no cva tenderness - Routine Extremities Exam Present: edema. Absent: cyanosis, clubbing - Routine Skin Exam Present: intact, cyanosis Comments: mild palmar erythema, scattered telangectasias - Routine Neurological Exam Present: alert, oriented X3 coordination ok finger to nose test, 4-/5 LE motor stregnth, sensation intact but mildly decreased b/l lower extremities. CN II-XII intact Results - Labs Result diagrams: 07/11/18 12:45 07/11/18 12:45 Abnormal lab results 07/11/18 07/11/18 Range/Units 12:45 12:45 RBC 3.17 L (4.00-5.30) mil/mm3 MCV 110.5 H (80.0-100.0) fL MCH 38.5 H (27.0-34.0) pg [place] % (Auto) 13.2 H (0.0-8.0) % Lymph # (Auto) 0.8 L (1.0-4.8) th/mm3 Potassium 2.8 L* (3.5-5.1) meq/L Chloride 110 H (98-107) meq/L Calcium 7.9 L (8.5-10.1) mg/dL Total Bilirubin 1.6 H (0.2-1.0) mg/dL AST 51 H (15-37) U/L Alkaline Phosphatase 253 H (45-117) U/L Troponin I Less than 0.02 L (0.02-0.05) ng/mL Total Protein 6.1 L (6.4-8.2) g/dL Albumin 2.8 L (3.4-5.0) g/dL Lipase 48 L (73-393) U/L Short CBC 07/11/18 Range/Units 12:45 WBC 4.1 (4.0-11.0) th/mm3 Hgb 12.2 (11.6-15.3) gm/dL Hct 35.0 (35.0-46.0) % Plt Count 204 (150-450) th/mm3 BMP 07/11/18 12:45 Sodium 143 Potassium 2.8 L* Chloride 110 H Carbon Dioxide 26.7 BUN 8 Creatinine 0.63 Calcium 7.9 L Cardiac Enzymes 07/11/18 Range/Units 12:45 Total Creatine Kinase 56 (26-192) U/L Troponin I Less than 0.02 L (0.02-0.05) ng/mL Liver Function 07/11/18 Range/Units 12:45 Total Bilirubin 1.6 H (0.2-1.0) mg/dL AST 51 H (15-37) U/L ALT 38 (10-53) U/L Alkaline Phosphatase 253 H (45-117) U/L Albumin 2.8 L (3.4-5.0) g/dL - Imaging Impressions Abdomen Ultrasound 07/11/18 00:00 CONCLUSION: 1. Coarsened parenchymal echotexture with nodular hepatic contour. These findings can be seen in the setting of cirrhosis. Recommend clinical correlation. 2. Moderate amount of ascites, which may be related to underlying liver dysfunction. 3. Diffuse gallbladder wall thickening. This is a nonspecific finding, often seen in the setting of liver disease. No evidence of cholelithiasis. Negative sonographic Cherry sign. 4. Dilation of the common bile duct to 14 mm. If clinically warranted, MRCP could be performed for further evaluation. 5. Numerous calcifications within the pancreas, suggesting chronic pancreatitis. 6. Severe right hydronephrosis with right lower pole renal calculi. Abdomen/Pelvis CT 07/11/18 12:38 CONCLUSION: 1. Enlarged fatty liver. 2. Large amount of ascites. 3. Thick-walled nondistended gallbladder with pericholecystic fluid. If there is clinical concern for acute cholecystitis, a hepatobiliary scan may be helpful to confirm cystic duct obstruction. 4. Retroperitoneal lymphadenopathy is nonspecific. 5. Mild diffuse wall thickening involving the descending colon, sigmoid colon and rectum raising possibility of mild colitis. Clinical correlation is recommended. 6. Severe ureteropelvicaliectasis on the right secondary to a large calcified obstructing distal ureteral calculus at the S1 level measuring 16 mm. 7. Small right kidney with diffuse cortical thinning related to probable chronic obstruction. 8. Calcified nonobstructing right renal calculi. 9. 4.7 x 1.7 x 2.3 cm right adrenal nodule which is nonspecific. 10. Chronic calcific pancreatitis. 11. Degenerative changes and scoliosis of the thoracolumbar spine. Chest X-Ray 07/11/18 12:38 CONCLUSION: No acute cardiopulmonary disease Caprini VTE Risk Assessment Caprini VTE Risk Assessment: Moderate/High Risk (score >= 2) Caprini Risk Assessment Model: Point Value = 1 Point Value = 2 Point Value = 3 Point Value = 5 Age 41-60 Minor surgery BMI > 25 kg/m2 Swollen legs Varicose veins or History of unexplained or recurrent spontaneous Oral contraceptives or hormone replacement Sepsis (< 1 month) Serious lung disease, including pneumonia (< 1 month) Abnormal pulmonary function Acute myocardial infarction Congestive heart failure (< 1 month) History of inflammatory bowel disease Medical patient at bed rest Age 61-74 Arthroscopic surgery Major open surgery (> 45 min) Laparoscopic surgery (> 45 min) Malignancy Confined to bed (> 72 hours) Immobilizing plaster cast Central venous access Age >= 75 History of VTE Family history of VTE Factor V Leiden Prothrombin [id number] Lupus anticoagulant Anticardiolipin antibodies Elevated serum homocysteine Heparin-induced thrombocytopenia Other congenital or acquired thrombophilia Stroke (< 1 month) Elective arthroplasty Hip, pelvis, or leg fracture Acute spinal cord injury (< 1 month) Prophylaxis Regimen: Total Risk Factor Score Risk Level Prophylaxis Regimen 0-1 Low Early ambulation 2 Moderate Order ONE of the following: *Sequential Compression Device (SCD) *Heparin 5000 units SQ BID 3-4 Higher Order ONE of the following medications: *Heparin 5000 units SQ TID *Enoxaparin/Lovenox 40 mg SQ daily (WT < 150 kg, CrCl > 30 mL/min) *Enoxaparin/Lovenox 30 mg SQ daily (WT < 150 kg, CrCl > 10-29 mL/min) *Enoxaparin/Lovenox 30 mg SQ BID (WT < 150 kg, CrCl > 30 mL/min) AND/OR *Sequential Compression Device (SCD) 5 or more Highest Order ONE of the following medications: *Heparin 5000 units SQ TID (Preferred with Epidurals) *Enoxaparin/Lovenox 40 mg SQ daily (WT < 150 kg, CrCl > 30 mL/min) *Enoxaparin/Lovenox 30 mg SQ daily (WT < 150 kg, CrCl > 10-29 mL/min) *Enoxaparin/Lovenox 30 mg SQ BID (WT < 150 kg, CrCl > 30 mL/min) AND *Sequential Compression Device (SCD) Assessment and Plan - Assessment (1) Acute hypokalemia Code(s): E87.6 - Hypokalemia Status: Acute (2) Cholecystitis Code(s): K81.9 - Cholecystitis, unspecified Status: Acute (3) Calculus, ureteral Code(s): N20.1 - Calculus of ureter Status: Acute (4) Bilateral leg weakness Code(s): R29.898 - Other symptoms and signs involving the musculoskeletal system Status: Acute (5) Ascites Code(s): R18.8 - Other ascites Status: Acute (6) Nutrition, metabolism, and development symptoms Code(s): R63.8 - Other symptoms and signs concerning food and fluid intake Status: Acute (7) DVT prophylaxis Status: Acute - Assessment and Plan See resident plan for more details. 1. New onset ascites - diagnostic tap, no abx unless PMNs >200 - likely liver disease from prior EtOH +/- HBV - Check HBV serologies - possible GB related, see below - start spironolactone - add lasix when K fixed 2. Obstructive nephrolithiasis with severe hydronephrosis - check PVR and madrigal if needed - consult urology, check for UTI. 3. Progressive weakness and incontinence difficult to tell what is from above but warrants MRI L-spine with new incontinence as she describes stool that she doesn't feel come out. if inconclusive could add brain 4. Cholecystitis - known history of cholelithiasis, not having classic symptoms, no fever or WBC or hypotension to suspect acute infectious cholecystitis. treat more as chronic cholecystitis for now. will get RUQ US. And consult surgery as clinically indicated. pericholecystic fluid may be from ascites. mild transaminitis and Tbili elevation and lipase, keep NPO 5. Hypokalemia: replace 6. Macrocytosis: check B12, folate 7. elevated lipase: may be 2/2 #4, will trend, keep NPO for now 8. Possible colitis on CT: monitor for diarrhea, surely needs GI for EGD/colon at some point dvt ppx: lovenox
--- NOTE | 2018-07-11 18:03 | MR ---
EXAM DATE: 07/11/2018 5:42 PM EST AGE/SEX: 53 years / Female INDICATIONS: Inability to ambulate. Swelling in lower leg an face. Patient has not been able to walk for about two weeks. CLINICAL DATA: This is the patient's initial encounter. Patient reports that signs and symptoms have been present for 2 weeks and indicates a pain score of 8/10. MEDICAL/SURGICAL HISTORY: Renal calculi. . Finger sx. COMPARISON: No prior exams available for comparison. TECHNIQUE: Multiplanar, multisequence MRI examination of the lumbar spine was performed without and with 5 ml Gadavist (gadobutrol) contrast as a single exam dose. FINDINGS: There is loss of disc signal and height at L3-4, L4-5 and L5-S1 consistent with degenerative disc dis ease. The lumbar vertebral bodies are normal in height and marrow intensity. No fracture or spondylol isthesis is noted. No abnormally enhancing lesion is noted. Severe hydronephrosis is noted on the rig ht. T12-L1: The thecal sac has a normal diameter. No evidence of disc bulge or protrusion. The neural foramina are patent bilaterally. L1-L2: The thecal sac has a normal diameter. No evidence of disc bulge or protrusion. The neural foramina are patent bilaterally. L2-L3: The thecal sac has a normal diameter. No evidence of disc bulge or protrusion. The neural foramina are patent bilaterally. L3-L4: Mild diffuse disc bulge is noted. Facet joint hypertrophy is also noted. Mild bilateral fora cordelia narrowing is noted. No spinal stenosis or focal disc herniation is noted. L4-L5: Mild diffuse disc bulge is noted. Facet joint hypertrophy is noted. Mild bilateral foraminal narrowing is noted. No spinal stenosis is noted. No focal disc herniation is noted. L5-S1: Mild diffuse disc bulge is noted. Facet joint hypertrophy is noted. Mild bilateral foraminal narrowing is noted. No spinal stenosis is noted. No focal disc herniation is noted. CONCLUSION: 1. Mild bilateral foraminal narrowing at L3-4, L4-5 and L5-S1 without spinal stenosis. 2. Degenerative disc disease L3-4, L4-5 and L5-S1. 3. No focal disc herniation. 4. No abnormal enhancing lesion. 5. Severe hydronephrosis on the right. Electronically signed by: Rico Isaacs MD Board Certified Radiologist 07/11/2018 6:02 PM EST
--- NOTE | 2018-07-11 19:26 | ECG ---
Date Performed: 07/11/2018 Time Performed: 12:57:49 PTAGE: 53 years EKG: Baseline artifact present Sinus rhythm POSSIBLE RIGHT VENTRICULAR CONDUCTION DELAY NONSPECIFIC T-WAVE ABNORMALITY BORDERLINE ECG Compared t o prior electrocardiogram, rate has slowed. PREVIOUS TRACING : 10/15/2011 12.49 DOCTOR: Tab Cloud Interpretating Date/Time 07/11/2018 19:25:21
[2018-07-11] MEDS ORDERED: Naloxone Inj 0.4 MG/ML Vial IV.PUSH PRN (20:51)
[2018-07-11 22:02] LABS: Hepatitis B Surface Antibody 8.52 mIU/mL
[2018-07-11 22:18] LABS: Vitamin B12 1918 pg/mL (193-986)
[2018-07-11] MEDS: Senna/Docusate Sodium 8.6/50 MG Tablet PO SCH (22:38)
[2018-07-11 22:46] LABS: Hepatitits B Surface Antigen Nonreactive (Nonreactive)
[2018-07-12] MEDS: Sod Chloride 0.9% Inj 1,000 ML IV.CONT SCH ×3 (00:19→13:32)
[2018-07-12] MEDS: Heparin - SQ 10,000 UNITS/ML Vial SQ SCH ×2 (04:07→17:00)
[2018-07-12] MEDS ORDERED: Chlorhexidine Gluconate 2% 1 Pack (2 Cloths) TOPICAL ONE (04:23)
[2018-07-12 04:47] LABS: Bilirubin,Urine Negative (Negative); Calcium Oxalate Crystals,Urine Few /hpf; Clarity,Urine Hazy (Clear); Color,Urine Amber (Yellw/Straw); Glucose,Urine (UA) Negative (Negative); Leukocyte Esterase,Urine Small (Negative); Nitrite,Urine Positive (Negative); Squamous Epithelial Cell,Urine 6 /hpf (0-5)
[2018-07-12 04:49] LABS: Bacteria,Urine Occasional /hpf
[2018-07-12] MEDS ORDERED: Sodium Chlor 0.9% Inj 500 ML IV.SIG SCH (05:00)
[2018-07-12] MEDS: Senna/Docusate Sodium 8.6/50 MG Tablet PO SCH ×2 (08:21→21:20)
[2018-07-12 09:46] LABS: Baso % (Auto) 0.8 % (0.0-2.0); Eos % (Auto) 1.3 % (0.0-4.0); Hematocrit 30.7 % (35.0-46.0); Hemoglobin 10.3 gm/dL (11.6-15.3); Lymph # (Auto) 0.7 th/mm3 (1.0-4.8); Lymph % (Auto) 24.1 % (9.0-44.0); Mean Corpuscular HGB Conc 33.6 % (32.0-36.0); Mean Corpuscular Hemoglobin 37.7 pg (27.0-34.0); Mean Corpuscular Volume 112.2 fL (80.0-100.0); Mean Platelet Volume 7.5 fL (7.0-11.0); Mono # (Auto) 0.4 th/mm3 (0.0-0.9); Mono % (Auto) 14.5 % (0.0-8.0); Neut # (Auto) 1.8 th/mm3 (1.8-7.7); Neut % (Auto) 59.3 % (16.0-70.0); Platelet Count 171 th/mm3 (150-450); Red Blood Count 2.74 mil/mm3 (4.00-5.30); Red Cell Distribution Width 14.4 % (11.6-17.2); White Blood Count 3.1 th/mm3 (4.0-11.0)
[2018-07-12 10:14] LABS: Alanine Aminotransferase 36 U/L (10-53); Albumin 2.4 g/dL (3.4-5.0); Alkaline Phosphatase 236 U/L (45-117); Anion Gap 7 meq/L (5-15); Aspartate Aminotransferase 47 U/L (15-37); Blood Urea Nitrogen 9 mg/dL (7-18); Calcium 8.2 mg/dL (8.5-10.1); Carbon Dioxide 26.5 meq/L (21.0-32.0); Chloride 111 meq/L (98-107); Glomerular Filtration Rate 76 mL/min (>89); Glucose,Random 94 mg/dL (74-106); Potassium 4.4 meq/L (3.5-5.1); Sodium 144 meq/L (136-145); Total Protein 5.6 g/dL (6.4-8.2)
[2018-07-12] MEDS ORDERED: fentaNYL Citrate Inj 100 MCG/2 ML Ampul ONE (10:33)
[2018-07-12] MEDS ORDERED: Famotidine PF Inj 20 MG/2 ML Vial ONE (10:39)
--- NOTE | 2018-07-12 11:05 | P.PNFP ---
Subjective Interval history: Patient seen and examined this morning. She states that she is feeling a little better, but is still having some abdominal pain. She does not feel like her abdomen is more distended, but does feel tight. She has gotten up to go to the bathroom with a walker and with assistance from nursing staff. She did not experience any chest pain, shortness of breath, no nausea/ vomiting. <Shane Kendal Monzon - 07/12/18 15:19> Results - Labs Result diagrams: 07/12/18 09:29 07/12/18 09:29 <GeeGlenn Moseley - 07/12/18 16:01> Abnormal lab results 07/11/18 07/12/18 07/12/18 Range/Units 21:14 04:12 09:29 WBC 3.1 L (4.0-11.0) th/mm3 RBC 2.74 L (4.00-5.30) mil/mm3 Hgb 10.3 L (11.6-15.3) gm/dL Hct 30.7 L (35.0-46.0) % MCV 112.2 H (80.0-100.0) fL MCH 37.7 H (27.0-34.0) pg Will[place] % (Auto) 14.5 H (0.0-8.0) % Lymph # (Auto) 0.7 L (1.0-4.8) th/mm3 Chloride (98-107) meq/L Estimated GFR (>89) mL/min Calcium (8.5-10.1) mg/dL AST (15-37) U/L Alkaline Phosphatase (45-117) U/L Total Protein (6.4-8.2) g/dL Albumin (3.4-5.0) g/dL Vitamin B12 1918 H (193-986) pg/mL Folate Greater than 20.0 H (3.1-17.5) ng/mL Urine Clarity Hazy H (Clear) Ur Specific Atkinson Greater than 1.060 H (1.002-1.035) Urine Nitrate Positive H (Negative) Ur Leukocyte Esterase Small H (Negative) Urine WBC 16 H (0-5) /hpf Calcium Oxalate Crystal Few H (None) /hpf Urine Bacteria Occasional H (None) /hpf 07/12/18 Range/Units 09:29 WBC (4.0-11.0) th/mm3 RBC (4.00-5.30) mil/mm3 Hgb (11.6-15.3) gm/dL Hct (35.0-46.0) % MCV (80.0-100.0) fL MCH (27.0-34.0) pg Will[place] % (Auto) (0.0-8.0) % Lymph # (Auto) (1.0-4.8) th/mm3 Chloride 111 H (98-107) meq/L Estimated GFR 76 L (>89) mL/min Calcium 8.2 L (8.5-10.1) mg/dL AST 47 H (15-37) U/L Alkaline Phosphatase 236 H (45-117) U/L Total Protein 5.6 L (6.4-8.2) g/dL Albumin 2.4 L (3.4-5.0) g/dL Vitamin B12 (193-986) pg/mL Folate (3.1-17.5) ng/mL Urine Clarity (Clear) Ur Specific Atkinson (1.002-1.035) Urine Nitrate (Negative) Ur Leukocyte Esterase (Negative) Urine WBC (0-5) /hpf Calcium Oxalate Crystal (None) /hpf Urine Bacteria (None) /hpf Short CBC 07/12/18 Range/Units 09:29 WBC 3.1 L (4.0-11.0) th/mm3 Hgb 10.3 L (11.6-15.3) gm/dL Hct 30.7 L (35.0-46.0) % Plt Count 171 (150-450) th/mm3 BMP 07/12/18 09:29 Sodium 144 Potassium 4.4 D Chloride 111 H Carbon Dioxide 26.5 BUN 9 Creatinine 0.79 Calcium 8.2 L Liver Function 07/12/18 Range/Units 09:29 Total Bilirubin 1.0 (0.2-1.0) mg/dL AST 47 H (15-37) U/L ALT 36 (10-53) U/L Alkaline Phosphatase 236 H (45-117) U/L Albumin 2.4 L (3.4-5.0) g/dL Urine 07/12/18 Range/Units 04:12 Urine Color Soco (Yellw/Straw) Urine Clarity Hazy H (Clear) Urine pH 5.0 (5.0-8.5) Ur Specific Atkinson Greater than 1.060 H (1.002-1.035) Urine Protein Negative (Neg-Trace) mg/dL Urine Glucose (UA) Negative (Negative) mg/dL <Glenn Flynn Lorelei - 07/12/18 16:01> Abnormal lab results 07/11/18 07/11/18 07/11/18 Range/Units 12:45 12:45 21:14 WBC (4.0-11.0) th/mm3 RBC 3.17 L (4.00-5.30) mil/mm3 Hgb (11.6-15.3) gm/dL Hct (35.0-46.0) % MCV 110.5 H (80.0-100.0) fL MCH 38.5 H (27.0-34.0) pg Will[place] % (Auto) 13.2 H (0.0-8.0) % Lymph # (Auto) 0.8 L (1.0-4.8) th/mm3 Potassium 2.8 L* (3.5-5.1) meq/L Chloride 110 H (98-107) meq/L Estimated GFR (>89) mL/min Calcium 7.9 L (8.5-10.1) mg/dL Total Bilirubin 1.6 H (0.2-1.0) mg/dL AST 51 H (15-37) U/L Alkaline Phosphatase 253 H (45-117) U/L Troponin I Less than 0.02 L (0.02-0.05) ng/mL Total Protein 6.1 L (6.4-8.2) g/dL Albumin 2.8 L (3.4-5.0) g/dL Lipase 48 L (73-393) U/L Vitamin B12 1918 H (193-986) pg/mL Folate Greater than 20.0 H (3.1-17.5) ng/mL Urine Clarity (Clear) Ur Specific Atkinson (1.002-1.035) Urine Nitrate (Negative) Ur Leukocyte Esterase (Negative) Urine WBC (0-5) /hpf Calcium Oxalate Crystal (None) /hpf Urine Bacteria (None) /hpf 07/12/18 07/12/18 07/12/18 Range/Units 04:12 09:29 09:29 WBC 3.1 L (4.0-11.0) th/mm3 RBC 2.74 L (4.00-5.30) mil/mm3 Hgb 10.3 L (11.6-15.3) gm/dL Hct 30.7 L (35.0-46.0) % MCV 112.2 H (80.0-100.0) fL MCH 37.7 H (27.0-34.0) pg [place] % (Auto) 14.5 H (0.0-8.0) % Lymph # (Auto) 0.7 L (1.0-4.8) th/mm3 Potassium (3.5-5.1) meq/L Chloride 111 H (98-107) meq/L Estimated GFR 76 L (>89) mL/min Calcium 8.2 L (8.5-10.1) mg/dL Total Bilirubin (0.2-1.0) mg/dL AST 47 H (15-37) U/L Alkaline Phosphatase 236 H (45-117) U/L Troponin I (0.02-0.05) ng/mL Total Protein 5.6 L (6.4-8.2) g/dL Albumin 2.4 L (3.4-5.0) g/dL Lipase (73-393) U/L Vitamin B12 (193-986) pg/mL Folate (3.1-17.5) ng/mL Urine Clarity Hazy H (Clear) Ur Specific [place] Greater than 1.060 H (1.002-1.035) Urine Nitrate Positive H (Negative) Ur Leukocyte Esterase Small H (Negative) Urine WBC 16 H (0-5) /hpf Calcium Oxalate Crystal Few H (None) /hpf Urine Bacteria Occasional H (None) /hpf Short CBC 07/11/18 07/12/18 Range/Units 12:45 09:29 WBC 4.1 3.1 L (4.0-11.0) th/mm3 Hgb 12.2 10.3 L (11.6-15.3) gm/dL Hct 35.0 30.7 L (35.0-46.0) % Plt Count 204 171 (150-450) th/mm3 BMP 07/11/18 07/12/18 12:45 09:29 Sodium 143 144 Potassium 2.8 L* 4.4 D Chloride 110 H 111 H Carbon Dioxide 26.7 26.5 BUN 8 9 Creatinine 0.63 0.79 Calcium 7.9 L 8.2 L Cardiac Enzymes 07/11/18 Range/Units 12:45 Total Creatine Kinase 56 (26-192) U/L Troponin I Less than 0.02 L (0.02-0.05) ng/mL Liver Function 07/11/18 07/12/18 Range/Units 12:45 09:29 Total Bilirubin 1.6 H 1.0 (0.2-1.0) mg/dL AST 51 H 47 H (15-37) U/L ALT 38 36 (10-53) U/L Alkaline Phosphatase 253 H 236 H (45-117) U/L Albumin 2.8 L 2.4 L (3.4-5.0) g/dL Urine 07/12/18 Range/Units 04:12 Urine Color Soco (Yellw/Straw) Urine Clarity Hazy H (Clear) Urine pH 5.0 (5.0-8.5) Ur Specific [place] Greater than 1.060 H (1.002-1.035) Urine Protein Negative (Neg-Trace) mg/dL Urine Glucose (UA) Negative (Negative) mg/dL <Kendal Rodriguez G - 07/12/18 11:05> - Imaging Impressions Abdomen Ultrasound 07/11/18 00:00 CONCLUSION: 1. Coarsened parenchymal echotexture with nodular hepatic contour. These findings can be seen in the setting of cirrhosis. Recommend clinical correlation. 2. Moderate amount of ascites, which may be related to underlying liver dysfunction. 3. Diffuse gallbladder wall thickening. This is a nonspecific finding, often seen in the setting of liver disease. No evidence of cholelithiasis. Negative sonographic Cherry sign. 4. Dilation of the common bile duct to 14 mm. If clinically warranted, MRCP could be performed for further evaluation. 5. Numerous calcifications within the pancreas, suggesting chronic pancreatitis. 6. Severe right hydronephrosis with right lower pole renal calculi. Lumbar Spine MRI 07/11/18 00:00 CONCLUSION: 1. Mild bilateral foraminal narrowing at L3-4, L4-5 and L5-S1 without spinal stenosis. 2. Degenerative disc disease L3-4, L4-5 and L5-S1. 3. No focal disc herniation. 4. No abnormal enhancing lesion. 5. Severe hydronephrosis on the right. <GeeGlenn Lorelei - 07/12/18 16:01> Impressions Abdomen Ultrasound 07/11/18 00:00 CONCLUSION: 1. Coarsened parenchymal echotexture with nodular hepatic contour. These findings can be seen in the setting of cirrhosis. Recommend clinical correlation. 2. Moderate amount of ascites, which may be related to underlying liver dysfunction. 3. Diffuse gallbladder wall thickening. This is a nonspecific finding, often seen in the setting of liver disease. No evidence of cholelithiasis. Negative sonographic Cherry sign. 4. Dilation of the common bile duct to 14 mm. If clinically warranted, MRCP could be performed for further evaluation. 5. Numerous calcifications within the pancreas, suggesting chronic pancreatitis. 6. Severe right hydronephrosis with right lower pole renal calculi. Lumbar Spine MRI 07/11/18 00:00 CONCLUSION: 1. Mild bilateral foraminal narrowing at L3-4, L4-5 and L5-S1 without spinal stenosis. 2. Degenerative disc disease L3-4, L4-5 and L5-S1. 3. No focal disc herniation. 4. No abnormal enhancing lesion. 5. Severe hydronephrosis on the right. Abdomen/Pelvis CT 07/11/18 12:38 CONCLUSION: 1. Enlarged fatty liver. 2. Large amount of ascites. 3. Thick-walled nondistended gallbladder with pericholecystic fluid. If there is clinical concern for acute cholecystitis, a hepatobiliary scan may be helpful to confirm cystic duct obstruction. 4. Retroperitoneal lymphadenopathy is nonspecific. 5. Mild diffuse wall thickening involving the descending colon, sigmoid colon and rectum raising possibility of mild colitis. Clinical correlation is recommended. 6. Severe ureteropelvicaliectasis on the right secondary to a large calcified obstructing distal ureteral calculus at the S1 level measuring 16 mm. 7. Small right kidney with diffuse cortical thinning related to probable chronic obstruction. 8. Calcified nonobstructing right renal calculi. 9. 4.7 x 1.7 x 2.3 cm right adrenal nodule which is nonspecific. 10. Chronic calcific pancreatitis. 11. Degenerative changes and scoliosis of the thoracolumbar spine. Chest X-Ray 07/11/18 12:38 CONCLUSION: No acute cardiopulmonary disease <Kendal Rodriguez - 07/12/18 11:05> Physical Exam Vital signs: Vital Signs 07/11/18 16:55 07/11/18 18:26 07/11/18 20:00 Temperature 97.6 F 97.1 F L Pulse Rate 81 59 L 72 Respiratory Rate 18 18 18 Blood Pressure 107/74 106/71 108/65 Pulse Oximetry 99 97 07/12/18 00:00 07/12/18 04:00 07/12/18 08:00 Temperature 98.2 F 98.2 F 98.2 F Pulse Rate 72 70 73 Respiratory Rate 18 18 19 Blood Pressure 110/64 110/70 88/57 L Pulse Oximetry 96 96 92 L 07/12/18 12:00 07/12/18 12:15 07/12/18 12:30 Temperature 98.4 F Pulse Rate 63 60 73 Respiratory Rate 13 11 L 12 Blood Pressure 102/57 L 102/58 L 104/58 L Pulse Oximetry 100 100 95 07/12/18 12:45 Temperature 97.8 F Pulse Rate 75 Respiratory Rate 18 Blood Pressure 109/62 Pulse Oximetry 95 Intake & Output 07/11/18 07/12/18 07/12/18 18:59 06:59 18:59 Intake Total 50 / 50 60 / 60 1000 / 1000 Output Total 300 / 300 Balance 50 / 50 -240 / -240 1000 / 1000 Weight 51.2 kg 52.3 kg Intake: IV 50 / 50 1000 / 1000 NS Inj 1,000 ML @ 100 mls/hr IV 1000 / 1000 .CONT .Q10H SHELLY Rx#:[id number] Zosyn 3.375 GM Premix 3.375 gm 50 / 50 In 50 ml @ 100 mls/hr IV.SIG ONCE ONE Rx#:[id number] Oral 60 / 60 Output: Urine 300 / 300 Other: # Voids 1 Weight On Admission 51.2 kg <Glenn Flynn - 07/12/18 16:01> Vital Signs 07/11/18 12:21 07/11/18 12:33 07/11/18 12:44 Temperature 97.7 F Pulse Rate 89 83 78 Respiratory Rate 16 18 Blood Pressure 116/60 120/77 Pulse Oximetry 99 98 07/11/18 12:45 07/11/18 14:40 07/11/18 16:55 Temperature Pulse Rate 82 81 Respiratory Rate 18 18 Blood Pressure 101/75 107/74 Pulse Oximetry 98 98 07/11/18 18:26 07/11/18 20:00 07/12/18 00:00 Temperature 97.6 F 97.1 F L 98.2 F Pulse Rate 59 L 72 72 Respiratory Rate 18 18 18 Blood Pressure 106/71 108/65 110/64 Pulse Oximetry 99 97 96 07/12/18 04:00 Temperature 98.2 F Pulse Rate 70 Respiratory Rate 18 Blood Pressure 110/70 Pulse Oximetry 96 Intake & Output 07/11/18 07/12/18 07/12/18 18:59 06:59 18:59 Intake Total 50 / 50 60 / 60 Output Total 300 / 300 Balance 50 / 50 -240 / -240 Weight 51.2 kg 52.3 kg Intake: IV 50 / 50 Zosyn 3.375 GM Premix 3.375 gm 50 / 50 In 50 ml @ 100 mls/hr IV.SIG ONCE ONE Rx#:[id number] Oral 60 / 60 Output: Urine 300 / 300 Other: # Voids 1 Weight On Admission 51.2 kg <Kendal Rodriguez - 07/12/18 11:05> Narrative: GENERAL: Thin white female sitting up in bed, in NAD SKIN: Warm and dry. HEAD: Atraumatic. Normocephalic. Swelling of R cheek. EYES: Pupils equal and round. No scleral icterus. No injection or drainage. ENT: No nasal bleeding or discharge. Mucous membranes pink and moist. NECK: Trachea midline. No JVD. CARDIOVASCULAR: Regular rate and rhythm. RESPIRATORY: No accessory muscle use. Clear to auscultation. Breath sounds equal bilaterally. GASTROINTESTINAL: Abdomen soft, tenderness of RUQ, distended, but not tense. + fluid wave. Hepatic and splenic margins not palpable. MUSCULOSKELETAL: Extremities without clubbing or cyanosis 1+ pitting edema to mid-shins. Improved from yesterday. No obvious deformities. NEUROLOGICAL: Awake and alert. No obvious cranial nerve deficits. Motor grossly within normal limits. PSYCHIATRIC: Appropriate mood and affect; insight and judgment normal. <Kendal Rodriguez - 07/12/18 15:19> Assessment and Plan - Assessment (1) Calculus, ureteral Code(s): N20.1 - Calculus of ureter Status: Acute (2) Bilateral leg weakness Code(s): R29.898 - Other symptoms and signs involving the musculoskeletal system Status: Acute (3) Ascites Code(s): R18.8 - Other ascites Status: Acute (4) Thickening of wall of gallbladder Code(s): K82.8 - Other specified diseases of gallbladder Status: Acute (5) Acute hypokalemia Code(s): E87.6 - Hypokalemia Status: Resolved (6) Nutrition, metabolism, and development symptoms Code(s): R63.8 - Other symptoms and signs concerning food and fluid intake Status: Acute (7) DVT prophylaxis Status: Acute <Glenn Flynn - 07/12/18 16:01> (1) Calculus, ureteral Code(s): N20.1 - Calculus of ureter Status: Acute Plan: Patient with RUQ abdominal pain. No right flank pain on exam. CT abdomen pelvis on admission shows right kidney with diffuse cortical thinning related to probable colonic obstruction, calcified nonobstructing right renal calculi. Severe ureteropelvicaliectasis on the right secondary to a large calcified obstructing distal ureteral calculus at the S1 level measuring 16 mm. 4.7 cm nonspecific left adrenal nodule -Urology consulted, appreciate recommendations -N.p.o. after midnight -Cystoscopy, right retrograde pyelogram and right ureteral stent placement today -Conservative management of left adrenal nodule with follow-up imaging (2) Bilateral leg weakness Code(s): R29.898 - Other symptoms and signs involving the musculoskeletal system Status: Acute Plan: Patient with chronic LE weakness that worsened a week ago. Also having urinary and fecal incontinence for the past couple of days. Rule out cauda equina syndrome. Balance and gait issues are likely due to lingering effects of Wernicke's Korsakoff syndrome. MRI lumbar spine with and without contrast on admission does not show any indication of compression on the conus medullaris or cauda equina -Continue to evaluate for other etiologies of patient's bilateral weakness (3) Ascites Code(s): R18.8 - Other ascites Status: Acute Plan: Patient with abdominal distention along with LE edema for the past 2 weeks. Has history of alcoholism. Cirrhosis not seen on abdominal CT (fatty liver) BNP WNL at 42 -Spironolactone 100 mg x1 given -Continue BID -Ordered diagnostic paracentesis -Will await results of paracentesis to determine next steps in treatment -Ultrasound abdomen showed coarsened parenchymal echotexture with nodular hepatic contour. These findings can be seen in the setting of cirrhosis. (4) Thickening of wall of gallbladder Code(s): K82.8 - Other specified diseases of gallbladder Status: Acute Plan: CT abdomen pelvis shows Thick-walled nondistended gallbladder with pericholecystic fluid. Ultrasound of the abdomen showed bladder wall thickening, no evidence of cholelithiasis, negative sonographic Cherry sign. Relation of the common bile duct to 14 mm. Total bilirubin elevated at 1.6 Alkaline phosphatase elevated at 253 -Patient is having RUQ abdominal pain, but no fevers, no leukocytosis. -We will continue to monitor to determine whether further studies should be performed (5) Acute hypokalemia Code(s): E87.6 - Hypokalemia Status: Resolved Plan: Hyperkalemic on admission at 2.8. WNL today -Given KCl 40 mEq x2 -BMP in a.m. (6) Nutrition, metabolism, and development symptoms Code(s): R63.8 - Other symptoms and signs concerning food and fluid intake Status: Acute Plan: Fluids: tolerating PO/NS @ 100ml/hr to be given at midnight while patient is n.p.o. Electrolytes: monitor and replete as needed, see above for hyperkalemia plan Nutrition: n.p.o GI Prophylaxis: None indicated at this time (7) DVT prophylaxis Status: Acute Plan: DVT Prophylaxis: Early ambulation. Heparin 5000U subQ q12hr <Shane Kendal Monzon - 07/12/18 15:12> - Attending Attestation The exam, history, and the medical decision-making described in the above note were completed with the assistance of the resident physician. I reviewed and agree with the findings presented. I attest that I had a [id number] encounter with the patient on the same day, and personally performed and documented my assessment and findings in the medical record. 1. New onset ascites - diagnostic tap chapo , no abx unless PMNs >200 - likely liver disease from prior EtOH +/- HBV she reports historically - HBV core pending, if negative no concern, if positive will get HBV VL - potassium corrected. start spironolactone/furosemide at 100/40 ratio 2. Obstructive nephrolithiasis with severe hydronephrosis - urology consulted, going for cysto and stent today 3. Progressive weakness and incontinence MRI l spine ok, maybe 2/2 above problems could consider mr brain if doesnt improve 4. dilated CBD/ RUQ pain, known hx of cholelithiasis maybe MRCP after problems 1 and 2 5. Hypokalemia: replace 6. Macrocytosis: b12 folate ok, may be liver disease/etoh 7. elevated lipase: may be 2/2 #4, will trend 8. Possible colitis on CT: monitor for diarrhea, surely needs GI for EGD/colon at some point 9. Gram + organism in blood culture clinically stable, rpt blood cx and monitor, hopefully contaminant <Glenn Flynn - 07/12/18 16:01>
[2018-07-12] MEDS ORDERED: Iohexol 350 MG/ML 50 ML Vial (for Rad Diag) PO ONE (11:47)
--- NOTE | 2018-07-12 12:03 | P.OP ---
- Preoperative Diagnosis (1) Right ureteral calculus - Postoperative Diagnosis (1) Right ureteral calculus Date of procedure: 07/12/18 Procedure: Cystoscopy, right retrograde pyelogram and right ureteral stent placement Implants: Marne 6 Turkish by 24 cm ureteral stent placed on right side Anesthesia: PAULO Surgeon: Chadd Arreaga MD Estimated blood loss (mL): 0 Pathology: none sent Operation and Findings: Indication for procedures: Case of a pleasant 53-year-old female with a 1.6 cm obstructing right mid ureteral calculus who presents now for cystoscopy, right retrograde pyelogram and right ureteral stent placement. Procedures in detail: Patient was brought to the operating suite and placed supine on the OR table. She was then placed under general anesthesia. She was then repositioned in the dorsolithotomy position and prepped and draped in normal sterile fashion. After appropriate timeout was undertaken I proceeded with cystoscopic evaluation utilizing the rigid cystoscope with the 20 Turkish sheath and the 30 degree lens. Both right and left ureteral orifices were in correct anatomic position with clear drainage noted on the left and none on the right. I then proceeded to pass a sensor 0.035 wire up the patient's right ureter and was able to successfully navigated around the stone and further advance the wire up into the right renal pelvis. A 6 Turkish open-ended ureteral catheter was then advanced over the wire and fully advanced up into the right renal pelvis. The wire was withdrawn and a sample of urine was obtained from the right renal pelvis and submitted for culture and sensitivity. The urine itself did not appear purulent. I then proceeded with performing a retrograde pyelogram study to outline the collecting system. The guidewire was reintroduced and the open-ended catheter was exchanged for a [place] 6 Turkish by 24 cm double-J stent. The stent was placed on the both cystoscopic and fluoroscopic guidance without difficulty. Once the stent was in proper position the trailing string was removed. The bladder was drained of all irrigant fluid and the cystoscope withdrawn. The patient tolerated the procedures without complications and was transferred to the PACU in satisfactory condition.
[2018-07-13] MEDS: Sod Chloride 0.9% Inj 1,000 ML IV.CONT SCH ×2 (01:27→05:59)
[2018-07-13] MEDS ORDERED: Sodium Chlor 0.9% Inj 500 ML IV.SIG ONE (04:23)
[2018-07-13] MEDS: Heparin - SQ 10,000 UNITS/ML Vial SQ SCH ×2 (04:44→15:29)
[2018-07-13] MEDS: Senna/Docusate Sodium 8.6/50 MG Tablet PO SCH ×2 (08:13→20:21)
[2018-07-13] MEDS: Furosemide 40 MG Tablet PO SCH (08:15)
[2018-07-13 08:50] LABS: Baso % (Auto) 0.8 % (0.0-2.0); Eos % (Auto) 1.3 % (0.0-4.0); Hematocrit 30.6 % (35.0-46.0); Hemoglobin 10.2 gm/dL (11.6-15.3); Lymph % (Auto) 28.8 % (9.0-44.0); Mean Corpuscular HGB Conc 33.4 % (32.0-36.0); Mean Corpuscular Volume 113.6 fL (80.0-100.0); Mean Platelet Volume 7.8 fL (7.0-11.0); Mono # (Auto) 0.5 th/mm3 (0.0-0.9); Mono % (Auto) 13.5 % (0.0-8.0); Neut % (Auto) 55.6 % (16.0-70.0); Platelet Count 173 th/mm3 (150-450); Red Cell Distribution Width 14.8 % (11.6-17.2); White Blood Count 3.5 th/mm3 (4.0-11.0)
[2018-07-13 09:14] LABS: Albumin 2.3 g/dL (3.4-5.0); Anion Gap 7 meq/L (5-15); Aspartate Aminotransferase 31 U/L (15-37); Blood Urea Nitrogen 8 mg/dL (7-18); Calcium 7.6 mg/dL (8.5-10.1); Carbon Dioxide 26.4 meq/L (21.0-32.0); Chloride 111 meq/L (98-107); Glomerular Filtration Rate Greater Than 89 mL/min (>89); Glucose,Random 119 mg/dL (74-106); Potassium 3.9 meq/L (3.5-5.1); Sodium 144 meq/L (136-145)
[2018-07-13 09:31] LABS: Alanine Aminotransferase 27 U/L (10-53); Alkaline Phosphatase 210 U/L (45-117); Total Protein 5.1 g/dL (6.4-8.2)
--- NOTE | 2018-07-13 11:36 | P.PNFP ---
Subjective Interval history: Patient seen and examined this morning. She states that she is doing fine. She is still having abdominal pain from the tightness of her belly due to the fluid. She feels that the pain medication helps. Otherwise, no chest pain, no shortness of breath, no fever/chills, no nausea/vomiting. She is doing okay with ambulation with her walker. <Shane Kendal Monzon - 07/13/18 12:21> Results - Labs Result diagrams: 07/13/18 06:48 07/13/18 06:48 <GeeGlenn Lorelei - 07/13/18 17:12> Abnormal lab results 07/13/18 07/13/18 Range/Units 06:48 06:48 WBC 3.5 L (4.0-11.0) th/mm3 RBC 2.70 L (4.00-5.30) mil/mm3 Hgb 10.2 L (11.6-15.3) gm/dL Hct 30.6 L (35.0-46.0) % MCV 113.6 H (80.0-100.0) fL MCH 38.0 H (27.0-34.0) pg [place] % (Auto) 13.5 H (0.0-8.0) % Chloride 111 H (98-107) meq/L Random Glucose 119 H (74-106) mg/dL Calcium 7.6 L (8.5-10.1) mg/dL Alkaline Phosphatase 210 H (45-117) U/L Total Protein 5.1 L (6.4-8.2) g/dL Albumin 2.3 L (3.4-5.0) g/dL Short CBC 07/13/18 Range/Units 06:48 WBC 3.5 L (4.0-11.0) th/mm3 Hgb 10.2 L (11.6-15.3) gm/dL Hct 30.6 L (35.0-46.0) % Plt Count 173 (150-450) th/mm3 BMP 07/13/18 06:48 Sodium 144 Potassium 3.9 Chloride 111 H Carbon Dioxide 26.4 BUN 8 Creatinine 0.65 Calcium 7.6 L Liver Function 07/13/18 Range/Units 06:48 Total Bilirubin 0.7 (0.2-1.0) mg/dL AST 31 (15-37) U/L ALT 27 (10-53) U/L Alkaline Phosphatase 210 H (45-117) U/L Albumin 2.3 L (3.4-5.0) g/dL <Glenn Flynn - 07/13/18 17:12> Abnormal lab results 07/13/18 07/13/18 Range/Units 06:48 06:48 WBC 3.5 L (4.0-11.0) th/mm3 RBC 2.70 L (4.00-5.30) mil/mm3 Hgb 10.2 L (11.6-15.3) gm/dL Hct 30.6 L (35.0-46.0) % MCV 113.6 H (80.0-100.0) fL MCH 38.0 H (27.0-34.0) pg [place] % (Auto) 13.5 H (0.0-8.0) % Chloride 111 H (98-107) meq/L Random Glucose 119 H (74-106) mg/dL Calcium 7.6 L (8.5-10.1) mg/dL Alkaline Phosphatase 210 H (45-117) U/L Total Protein 5.1 L (6.4-8.2) g/dL Albumin 2.3 L (3.4-5.0) g/dL Short CBC 07/13/18 Range/Units 06:48 WBC 3.5 L (4.0-11.0) th/mm3 Hgb 10.2 L (11.6-15.3) gm/dL Hct 30.6 L (35.0-46.0) % Plt Count 173 (150-450) th/mm3 [facility] 07/13/18 06:48 Sodium 144 Potassium 3.9 Chloride 111 H Carbon Dioxide 26.4 BUN 8 Creatinine 0.65 Calcium 7.6 L Liver Function 07/13/18 Range/Units 06:48 Total Bilirubin 0.7 (0.2-1.0) mg/dL AST 31 (15-37) U/L ALT 27 (10-53) U/L Alkaline Phosphatase 210 H (45-117) U/L Albumin 2.3 L (3.4-5.0) g/dL <Kendal Rodriguez - 07/13/18 11:36> Physical Exam Vital signs: Vital Signs 07/12/18 20:00 07/13/18 00:00 07/13/18 04:00 Temperature 97.7 F 97.6 F 98.0 F Pulse Rate 72 76 61 Respiratory Rate 21 20 20 Blood Pressure 102/61 94/56 L 90/60 L Pulse Oximetry 94 L 96 95 07/13/18 06:06 07/13/18 06:18 07/13/18 08:00 Temperature 97.7 F Pulse Rate 76 70 Respiratory Rate 18 18 Blood Pressure 101/61 107/64 Pulse Oximetry 95 96 95 07/13/18 12:00 07/13/18 13:06 07/13/18 16:00 Temperature 97.8 F 97.9 F Pulse Rate 66 77 Respiratory Rate 18 18 16 Blood Pressure 100/63 95/74 L Pulse Oximetry 97 97 07/13/18 16:38 Temperature Pulse Rate Respiratory Rate 18 Blood Pressure Pulse Oximetry Intake & Output 07/12/18 07/13/18 07/13/18 18:59 06:59 18:59 Intake Total 1000 / 1000 2880 / 2880 600 / 600 Balance 1000 / 1000 2880 / 2880 600 / 600 Weight 53.2 kg Intake: IV 1000 / 1000 1900 / 1900 600 / 600 NS Inj 1,000 ML @ 100 mls/hr IV 1000 / 1000 1400 / 1400 600 / 600 .CONT .Q10H [facility] Rx#:[id number] NS Inj 500 ML @ Wide Open IV. 500 / 500 SIG BOLUS ONE Rx#:[id number] Oral 980 / 980 Other: # Voids 1 4 1 Date of Last Bowel Movement 07/12/18 07/13/18 # Bowel Movements 3 <Glenn Flynn K - 07/13/18 17:12> Vital Signs 07/12/18 12:00 07/12/18 12:15 07/12/18 12:30 Temperature 98.4 F Pulse Rate 63 60 73 Respiratory Rate 13 11 L 12 Blood Pressure 102/57 L 102/58 L 104/58 L Pulse Oximetry 100 100 95 07/12/18 12:45 07/12/18 14:30 07/12/18 16:00 Temperature 97.8 F 97.6 F 97.6 F Pulse Rate 75 62 76 Respiratory Rate 18 18 19 Blood Pressure 109/62 113/63 94/59 L Pulse Oximetry 95 97 97 07/12/18 20:00 07/13/18 00:00 07/13/18 04:00 Temperature 97.7 F 97.6 F 98.0 F Pulse Rate 72 76 61 Respiratory Rate 21 20 20 Blood Pressure 102/61 94/56 L 90/60 L Pulse Oximetry 94 L 96 95 07/13/18 06:06 07/13/18 06:18 07/13/18 08:00 Temperature 97.7 F Pulse Rate 76 70 Respiratory Rate 18 18 Blood Pressure 101/61 107/64 Pulse Oximetry 95 96 95 Intake & Output 07/12/18 07/13/18 07/13/18 18:59 06:59 18:59 Intake Total 1000 / 1000 2880 / 2880 600 / 600 Balance 1000 / 1000 2880 / 2880 600 / 600 Weight 53.2 kg Intake: IV 1000 / 1000 1900 / 1900 600 / 600 NS Inj 1,000 ML @ 100 mls/hr IV 1000 / 1000 1400 / 1400 600 / 600 .CONT .Q10H [facility] Rx#:[id number] NS Inj 500 ML @ Wide Open IV. 500 / 500 SIG BOLUS ONE Rx#:[id number] Oral 980 / 980 Other: # Voids 1 4 1 Date of Last Bowel Movement 07/12/18 07/13/18 # Bowel Movements 3 <Shane Kendal Monzon - 07/13/18 11:36> Narrative: GENERAL: Thin white female sitting up in bed, in NAD SKIN: Warm and dry. HEAD: Atraumatic. Normocephalic. Swelling of R cheek. EYES: Pupils equal and round. No scleral icterus. No injection or drainage. ENT: No nasal bleeding or discharge. Mucous membranes pink and moist. NECK: Trachea midline. No JVD. CARDIOVASCULAR: Regular rate and rhythm. RESPIRATORY: No accessory muscle use. Clear to auscultation. Breath sounds equal bilaterally. GASTROINTESTINAL: Abdomen soft, tenderness of RUQ, distended, but not tense. + fluid wave. Hepatic and splenic margins not palpable. MUSCULOSKELETAL: Extremities without clubbing, cyanosis or edema. Improved from yesterday. No obvious deformities. NEUROLOGICAL: Awake and alert. No obvious cranial nerve deficits. Motor grossly within normal limits. PSYCHIATRIC: Appropriate mood and affect; insight and judgment normal. <Shane Kendal Monzon - 07/13/18 12:21> Assessment and Plan - Assessment (1) Calculus, ureteral Code(s): N20.1 - Calculus of ureter Status: Acute (2) Ascites Code(s): R18.8 - Other ascites Status: Acute (3) Bilateral leg weakness Code(s): R29.898 - Other symptoms and signs involving the musculoskeletal system Status: Acute (4) Thickening of wall of gallbladder Code(s): K82.8 - Other specified diseases of gallbladder Status: Acute (5) Nutrition, metabolism, and development symptoms Code(s): R63.8 - Other symptoms and signs concerning food and fluid intake Status: Acute (6) DVT prophylaxis Status: Acute <Glenn Flynn - 07/13/18 17:12> (1) Calculus, ureteral Code(s): N20.1 - Calculus of ureter Status: Acute Plan: Patient with RUQ abdominal pain. No right flank pain on exam. CT abdomen pelvis on admission shows right kidney with diffuse cortical thinning related to probable colonic obstruction, calcified nonobstructing right renal calculi. Severe ureteropelvicaliectasis on the right secondary to a large calcified obstructing distal ureteral calculus at the S1 level measuring 16 mm. 4.7 cm nonspecific left adrenal nodule -Urology consulted, appreciate recommendations -POD1 s/p Cystoscopy, right retrograde pyelogram and right ureteral stent placement -Conservative management of left adrenal nodule with follow-up imaging (2) Ascites Code(s): R18.8 - Other ascites Status: Acute Plan: Patient with abdominal distention along with LE edema for the past 2 weeks. Has history of alcoholism. Cirrhosis not seen on abdominal CT (fatty liver) BNP WNL at 42 Ultrasound abdomen showed coarsened parenchymal echotexture with nodular hepatic contour. These findings can be seen in the setting of cirrhosis. -Spironolactone 100 mg x1 given -Spironolactone 100 mg p.o. daily, furosemide 40 mg p.o. daily, KCl 20 mEq p.o. daily (due to previous hypokalemia and furosemide) -Ordered diagnostic paracentesis, likely will be done Sunday -Will await results of paracentesis to determine next steps in treatment (3) Bilateral leg weakness Code(s): R29.898 - Other symptoms and signs involving the musculoskeletal system Status: Acute Plan: Patient with chronic LE weakness that worsened a week ago. Also having urinary and fecal incontinence for the past couple of days. Rule out cauda equina syndrome. Balance and gait issues are likely due to lingering effects of Wernicke's Korsakoff syndrome. MRI lumbar spine with and without contrast on admission does not show any indication of compression on the conus medullaris or cauda equina -Continue to evaluate for other etiologies of patient's bilateral weakness (4) Thickening of wall of gallbladder Code(s): K82.8 - Other specified diseases of gallbladder Status: Acute Plan: CT abdomen pelvis shows Thick-walled nondistended gallbladder with pericholecystic fluid. Ultrasound of the abdomen showed bladder wall thickening, no evidence of cholelithiasis, negative sonographic Cherry sign. Relation of the common bile duct to 14 mm. Total bilirubin elevated at 1.6 Alkaline phosphatase elevated at 253 -Patient is having RUQ abdominal pain, but no fevers, no leukocytosis. -We will continue to monitor to determine whether further studies should be performed (5) Nutrition, metabolism, and development symptoms Code(s): R63.8 - Other symptoms and signs concerning food and fluid intake Status: Acute Plan: Fluids: tolerating PO Electrolytes: monitor and replete as needed Nutrition: regular diet GI Prophylaxis: None indicated at this time (6) DVT prophylaxis Status: Acute Plan: DVT Prophylaxis: Early ambulation. Heparin 5000U subQ q12hr <Kendal Rodriguez - 07/13/18 12:11> - Attending Attestation The exam, history, and the medical decision-making described in the above note were completed with the assistance of the resident physician. I reviewed and agree with the findings presented. I attest that I had a [id number] encounter with the patient on the same day, and personally performed and documented my assessment and findings in the medical record. tolerated cystoscopy and stent placement. did have some low BPs overnight but it seems that she tolerates well. suspect they are typically on the low side. given 1L IVF bolus overnight. will stop now as we are trying to diurese for her asictes while we wait for her paracentesis. This should happen sunday. will follow. if still having RUQ pain after paracentesis and stent placement, will pursue MRCP. blood cultures with coag neg staph, still clinically seems so well, suspecting contaminant. await second set of cultures. <Glenn Flynn - 07/13/18 17:12>
[2018-07-13] MEDS: Potassium Chloride 10 MEQ ER Capsule PO SCH (14:46)
[2018-07-14] MEDS: Heparin - SQ 10,000 UNITS/ML Vial SQ SCH ×2 (04:24→17:38)
[2018-07-14 08:06] LABS: Baso % (Auto) 0.4 % (0.0-2.0); Eos % (Auto) 1.2 % (0.0-4.0); Hematocrit 30.3 % (35.0-46.0); Hemoglobin 10.1 gm/dL (11.6-15.3); Lymph % (Auto) 28.3 % (9.0-44.0); Mean Corpuscular HGB Conc 33.4 % (32.0-36.0); Mean Corpuscular Hemoglobin 37.5 pg (27.0-34.0); Mean Corpuscular Volume 112.1 fL (80.0-100.0); Mean Platelet Volume 7.5 fL (7.0-11.0); Mono # (Auto) 0.4 th/mm3 (0.0-0.9); Mono % (Auto) 11.8 % (0.0-8.0); Neut # (Auto) 2.1 th/mm3 (1.8-7.7); Neut % (Auto) 58.3 % (16.0-70.0); Platelet Count 159 th/mm3 (150-450); Red Cell Distribution Width 14.3 % (11.6-17.2); White Blood Count 3.7 th/mm3 (4.0-11.0)
[2018-07-14 08:38] LABS: Albumin 2.1 g/dL (3.4-5.0); Anion Gap 5 meq/L (5-15); Aspartate Aminotransferase 32 U/L (15-37); Blood Urea Nitrogen 9 mg/dL (7-18); Calcium 7.5 mg/dL (8.5-10.1); Carbon Dioxide 28.5 meq/L (21.0-32.0); Chloride 108 meq/L (98-107); Glomerular Filtration Rate 78 mL/min (>89); Glucose,Random 93 mg/dL (74-106); Potassium 4.1 meq/L (3.5-5.1); Sodium 141 meq/L (136-145)
[2018-07-14 08:39] LABS: Alanine Aminotransferase 24 U/L (10-53)
[2018-07-14 08:41] LABS: Alkaline Phosphatase 204 U/L (45-117); Total Protein 5.2 g/dL (6.4-8.2)
[2018-07-14] MEDS: Potassium Chloride 10 MEQ ER Capsule PO SCH (09:11)
[2018-07-14] MEDS: Furosemide 40 MG Tablet PO SCH (09:11)
--- NOTE | 2018-07-14 10:29 | P.PNFP ---
Subjective Interval history: Ms Justin was seen on rounds today. She reports that she feels as if her abdomen is much less distended though is still slightly painful particularly in the right quadrants. She reports her legs are much smaller than they were on admission. She denied any dysuria, nausea, vomiting, chest pain, shortness of breath <Ramy CarmenCathie Akira - 07/14/18 10:29> Results - Labs Result diagrams: 07/14/18 07:40 07/14/18 07:40 <Glenn Flynn - 07/14/18 14:57> Abnormal lab results 07/14/18 07/14/18 Range/Units 07:40 07:40 WBC 3.7 L (4.0-11.0) th/mm3 RBC 2.70 L (4.00-5.30) mil/mm3 Hgb 10.1 L (11.6-15.3) gm/dL Hct 30.3 L (35.0-46.0) % MCV 112.1 H (80.0-100.0) fL MCH 37.5 H (27.0-34.0) pg [place] % (Auto) 11.8 H (0.0-8.0) % Chloride 108 H (98-107) meq/L Estimated GFR 78 L (>89) mL/min Calcium 7.5 L (8.5-10.1) mg/dL Alkaline Phosphatase 204 H (45-117) U/L Total Protein 5.2 L (6.4-8.2) g/dL Albumin 2.1 L (3.4-5.0) g/dL Short CBC 07/14/18 Range/Units 07:40 WBC 3.7 L (4.0-11.0) th/mm3 Hgb 10.1 L (11.6-15.3) gm/dL Hct 30.3 L (35.0-46.0) % Plt Count 159 (150-450) th/mm3 BMP 07/14/18 07:40 Sodium 141 Potassium 4.1 Chloride 108 H Carbon Dioxide 28.5 BUN 9 Creatinine 0.77 Calcium 7.5 L Liver Function 07/14/18 Range/Units 07:40 Total Bilirubin 0.7 (0.2-1.0) mg/dL AST 32 (15-37) U/L ALT 24 (10-53) U/L Alkaline Phosphatase 204 H (45-117) U/L Albumin 2.1 L (3.4-5.0) g/dL <Glenn Flynn - 07/14/18 14:57> Abnormal lab results 07/14/18 07/14/18 Range/Units 07:40 07:40 WBC 3.7 L (4.0-11.0) th/mm3 RBC 2.70 L (4.00-5.30) mil/mm3 Hgb 10.1 L (11.6-15.3) gm/dL Hct 30.3 L (35.0-46.0) % MCV 112.1 H (80.0-100.0) fL MCH 37.5 H (27.0-34.0) pg [place] % (Auto) 11.8 H (0.0-8.0) % Chloride 108 H (98-107) meq/L Estimated GFR 78 L (>89) mL/min Calcium 7.5 L (8.5-10.1) mg/dL Alkaline Phosphatase 204 H (45-117) U/L Total Protein 5.2 L (6.4-8.2) g/dL Albumin 2.1 L (3.4-5.0) g/dL Short CBC 07/14/18 Range/Units 07:40 WBC 3.7 L (4.0-11.0) th/mm3 Hgb 10.1 L (11.6-15.3) gm/dL Hct 30.3 L (35.0-46.0) % Plt Count 159 (150-450) th/mm3 [facility] 07/14/18 07:40 Sodium 141 Potassium 4.1 Chloride 108 H Carbon Dioxide 28.5 BUN 9 Creatinine 0.77 Calcium 7.5 L Liver Function 07/14/18 Range/Units 07:40 Total Bilirubin 0.7 (0.2-1.0) mg/dL AST 32 (15-37) U/L ALT 24 (10-53) U/L Alkaline Phosphatase 204 H (45-117) U/L Albumin 2.1 L (3.4-5.0) g/dL <Ramy CarmenCathie E - 07/14/18 10:29> Physical Exam Vital signs: Vital Signs 07/13/18 16:00 07/13/18 16:38 07/13/18 20:00 Temperature 97.9 F 98.3 F Pulse Rate 77 64 Respiratory Rate 16 18 18 Blood Pressure 95/74 L 100/58 L Pulse Oximetry 97 95 07/14/18 00:00 07/14/18 04:00 07/14/18 08:00 Temperature 97.4 F L 98.1 F 98.3 F Pulse Rate 78 69 59 L Respiratory Rate 18 18 17 Blood Pressure 105/56 L 95/56 L 103/61 Pulse Oximetry 94 L 94 L 92 L 07/14/18 09:09 07/14/18 12:00 Temperature 98.4 F Pulse Rate 77 Respiratory Rate 19 Blood Pressure 110/57 L Pulse Oximetry 92 L 95 Intake & Output 07/13/18 07/14/18 07/14/18 18:59 06:59 18:59 Intake Total 1800 / 1800 Output Total 1000 / 1000 Balance 800 / 800 Weight 53.2 kg Intake: IV 600 / 600 NS Inj 1,000 ML @ 100 mls/hr IV 600 / 600 .CONT .Q10H [facility] Rx#:[id number] Oral 1200 / 1200 Output: Urine 1000 / 1000 Other: # Voids 1 Date of Last Bowel Movement 07/13/18 07/13/18 07/13/18 # Bowel Movements 1 <Glenn Flynn K - 07/14/18 14:57> Vital Signs 07/13/18 12:00 07/13/18 13:06 07/13/18 16:00 Temperature 97.8 F 97.9 F Pulse Rate 66 77 Respiratory Rate 18 18 16 Blood Pressure 100/63 95/74 L Pulse Oximetry 97 97 07/13/18 16:38 07/13/18 20:00 07/14/18 00:00 Temperature 98.3 F 97.4 F L Pulse Rate 64 78 Respiratory Rate 18 18 18 Blood Pressure 100/58 L 105/56 L Pulse Oximetry 95 94 L 07/14/18 04:00 07/14/18 08:00 07/14/18 09:09 Temperature 98.1 F 98.3 F Pulse Rate 69 59 L Respiratory Rate 18 17 Blood Pressure 95/56 L 103/61 Pulse Oximetry 94 L 92 L 92 L Intake & Output 07/13/18 07/14/18 07/14/18 18:59 06:59 18:59 Intake Total 1800 / 1800 Output Total 1000 / 1000 Balance 800 / 800 Weight 53.2 kg Intake: IV 600 / 600 NS Inj 1,000 ML @ 100 mls/hr IV 600 / 600 .CONT .Q10H [facility] Rx#:[id number] Oral 1200 / 1200 Output: Urine 1000 / 1000 Other: # Voids 1 Date of Last Bowel Movement 07/13/18 07/13/18 07/13/18 # Bowel Movements 1 <Cathie Holguin - 07/14/18 10:29> Narrative: GENERAL: Thin white female sitting up in bed, in NAD CARDIOVASCULAR: Regular rate and rhythm. RESPIRATORY: No accessory muscle use. Clear to auscultation. Breath sounds equal bilaterally. GASTROINTESTINAL: Abdomen soft, minimal tenderness of RUQ and right lower quadrant. Mildly distended, but not tense. MUSCULOSKELETAL: Trace edema of bilateral lower extremities extending to ankles NEUROLOGICAL: Awake and alert. <Cathie Holguin - 07/14/18 10:29> Assessment and Plan - Assessment (1) Calculus, ureteral Code(s): N20.1 - Calculus of ureter Status: Acute (2) Ascites Code(s): R18.8 - Other ascites Status: Acute (3) Positive blood culture Code(s): R78.81 - Bacteremia Status: Acute (4) Bilateral leg weakness Code(s): R29.898 - Other symptoms and signs involving the musculoskeletal system Status: Acute (5) Thickening of wall of gallbladder Code(s): K82.8 - Other specified diseases of gallbladder Status: Acute (6) Nutrition, metabolism, and development symptoms Code(s): R63.8 - Other symptoms and signs concerning food and fluid intake Status: Acute (7) DVT prophylaxis Status: Acute <Glenn Flynn K - 07/14/18 14:57> (1) Calculus, ureteral Code(s): N20.1 - Calculus of ureter Status: Acute Plan: Patient with RUQ abdominal pain. No right flank pain on exam. CT abdomen pelvis on admission shows right kidney with diffuse cortical thinning related to probable colonic obstruction, calcified nonobstructing right renal calculi. Severe ureteropelvicaliectasis on the right secondary to a large calcified obstructing distal ureteral calculus at the S1 level measuring 16 mm. 4.7 cm nonspecific left adrenal nodule -Urology consulted, appreciate recommendations -POD2 s/p Cystoscopy, right retrograde pyelogram and right ureteral stent placement -Conservative management of left adrenal nodule with follow-up imaging -Wound culture sample taken from right renal area now growing gram variable rods , will continue to follow (2) Ascites Code(s): R18.8 - Other ascites Status: Acute Plan: Patient with abdominal distention along with LE edema for the past 2 weeks. Has history of alcoholism. Cirrhosis not seen on abdominal CT (fatty liver) BNP WNL at 42 Ultrasound abdomen showed coarsened parenchymal echotexture with nodular hepatic contour. These findings can be seen in the setting of cirrhosis. -Spironolactone 100 mg p.o. daily, furosemide 40 mg p.o. daily, KCl 20 mEq p.o. daily (due to previous hypokalemia and furosemide) -Ordered diagnostic paracentesis, likely will be done Sunday -Will await results of paracentesis to determine next steps in treatment (3) Positive blood culture Code(s): R78.81 - Bacteremia Status: Acute Plan: Gram-positive organism and single blood culture -Patient afebrile with no increased white count, clinically stable -Repeat blood cultures drawn, no growth times 1 day -We will hold antibiotics as this is likely contaminant (4) Bilateral leg weakness Code(s): R29.898 - Other symptoms and signs involving the musculoskeletal system Status: Acute Plan: Patient with chronic LE weakness that worsened a week ago. Also having urinary and fecal incontinence for the past couple of days. Rule out cauda equina syndrome. Balance and gait issues are likely due to lingering effects of Wernicke's Korsakoff syndrome. MRI lumbar spine with and without contrast on admission does not show any indication of compression on the conus medullaris or cauda equina -Continue to evaluate for other etiologies of patient's bilateral weakness (5) Thickening of wall of gallbladder Code(s): K82.8 - Other specified diseases of gallbladder Status: Acute Plan: CT abdomen pelvis shows Thick-walled nondistended gallbladder with pericholecystic fluid. Ultrasound of the abdomen showed bladder wall thickening, no evidence of cholelithiasis, negative sonographic Cherry sign. Relation of the common bile duct to 14 mm. Total bilirubin elevated at 1.6 Alkaline phosphatase elevated at 253 -Patient is having RUQ abdominal pain, but no fevers, no leukocytosis. -We will continue to monitor to determine whether further studies should be performed (6) Nutrition, metabolism, and development symptoms Code(s): R63.8 - Other symptoms and signs concerning food and fluid intake Status: Acute Plan: Fluids: tolerating PO Electrolytes: monitor and replete as needed Nutrition: regular diet GI Prophylaxis: None indicated at this time (7) DVT prophylaxis Status: Acute Plan: DVT Prophylaxis: Early ambulation. Heparin 5000U subQ q12hr <Cathie Holguin - 07/14/18 10:23> - Assessment and Plan Discussed Condition With: Dr Flynn <Cathie Holguin - 07/14/18 10:29> - Attending Attestation The exam, history, and the medical decision-making described in the above note were completed with the assistance of the resident physician. I reviewed and agree with the findings presented. I attest that I had a [id number] encounter with the patient on the same day, and personally performed and documented my assessment and findings in the medical record. Her edema and ascites are improving with diuretics. She is urinating a lot with this and post procedure. electrolytes ok. Still has RUQ discomfort, worse after eating. still needs diagnostic tap despite improving ascites as she has not had one before and the ascites is new. she has a history of EtOH abuse but she has been sober for years. After this if still in pain, may need MRCP. operative cultures grew klebsiella. on augmentin for this. <Glenn Flynn - 07/14/18 14:57>
[2018-07-14] MEDS: Senna/Docusate Sodium 8.6/50 MG Tablet PO SCH ×2 (19:53→21:14)
[2018-07-14] MEDS: Amoxicillin/Clavulanate 875/125 MG Tablet PO SCH (21:14)
[2018-07-15] MEDS: Heparin - SQ 10,000 UNITS/ML Vial SQ SCH ×2 (05:31→16:26)
[2018-07-15] MEDS: Potassium Chloride 10 MEQ ER Capsule PO SCH (08:21)
[2018-07-15] MEDS: Amoxicillin/Clavulanate 875/125 MG Tablet PO SCH ×2 (08:21→20:37)
[2018-07-15] MEDS: Furosemide 40 MG Tablet PO SCH (08:21)
[2018-07-15] MEDS: Senna/Docusate Sodium 8.6/50 MG Tablet PO SCH ×2 (08:22→20:37)
--- NOTE | 2018-07-15 09:26 | P.PNFP ---
Subjective Interval history: Ms Justin was seen on rounds today. She reports that her abdominal pain is much better today and her stomach is much less tight today than it has been on previous days. She does still require oral pain medications to manage her right upper quadrant pain. Her legs are "skinnier "than previously. She denies any nausea, vomiting, dysuria, SOB, chest pain. <Ramy CarmenCathie E - 07/15/18 09:26> Results - Labs Result diagrams: 07/15/18 09:45 07/15/18 09:45 <Glenn Flynn - 07/15/18 14:57> Abnormal lab results 07/15/18 07/15/18 Range/Units 09:45 09:45 RBC 2.98 L (4.00-5.30) mil/mm3 Hgb 11.4 L (11.6-15.3) gm/dL Hct 32.5 L (35.0-46.0) % MCV 109.1 H (80.0-100.0) fL MCH 38.4 H (27.0-34.0) pg Estimated GFR 83 L (>89) mL/min Calcium 7.7 L (8.5-10.1) mg/dL AST 43 H (15-37) U/L Alkaline Phosphatase 236 H (45-117) U/L Total Protein 6.0 L D (6.4-8.2) g/dL Albumin 2.4 L (3.4-5.0) g/dL Short CBC 07/15/18 Range/Units 09:45 WBC 4.1 (4.0-11.0) th/mm3 Hgb 11.4 L (11.6-15.3) gm/dL Hct 32.5 L (35.0-46.0) % Plt Count 175 (150-450) th/mm3 BMP 07/15/18 09:45 Sodium 139 Potassium 4.2 Chloride 106 Carbon Dioxide 28.3 BUN 8 Creatinine 0.73 Calcium 7.7 L Liver Function 07/15/18 Range/Units 09:45 Total Bilirubin 1.0 (0.2-1.0) mg/dL AST 43 H (15-37) U/L ALT 26 (10-53) U/L Alkaline Phosphatase 236 H (45-117) U/L Albumin 2.4 L (3.4-5.0) g/dL <Glenn Flynn Lorelei - 07/15/18 14:57> - Imaging Impressions Abdomen Ultrasound 07/15/18 00:00 CONCLUSION: 1. Inadequate fluid for paracentesis <Glenn lFynn Lorelei - 07/15/18 14:57> Physical Exam Vital signs: Vital Signs 07/14/18 16:00 07/14/18 20:00 07/14/18 20:10 Temperature 98.6 F 99.1 F Pulse Rate 77 71 Respiratory Rate 19 16 16 Blood Pressure 111/54 L 96/58 L Pulse Oximetry 94 L 97 07/15/18 00:00 07/15/18 04:00 07/15/18 07:45 Temperature 98.4 F 98.0 F 97.9 F Pulse Rate 64 58 L 66 Respiratory Rate 16 16 20 Blood Pressure 100/61 95/61 L 118/72 Pulse Oximetry 94 L 93 L 92 L 07/15/18 08:55 07/15/18 09:29 07/15/18 11:15 Temperature 98.9 F 97.8 F Pulse Rate 51 L 58 L Respiratory Rate 16 20 Blood Pressure 99/51 L 95/53 L Pulse Oximetry 95 95 96 Intake & Output 07/14/18 07/15/18 07/15/18 18:59 06:59 18:59 Intake Total 960 / 960 Output Total 700 / 700 Balance 260 / 260 Weight 51.1 kg Intake: Oral 960 / 960 Output: Urine 700 / 700 Other: # Voids 4 Date of Last Bowel Movement 07/13/18 07/13/18 # Bowel Movements 1 <Glenn Flynn Lorelei Alvarez 07/15/18 14:57> Vital Signs 07/14/18 12:00 07/14/18 16:00 07/14/18 20:00 Temperature 98.4 F 98.6 F 99.1 F Pulse Rate 77 77 71 Respiratory Rate 19 19 16 Blood Pressure 110/57 L 111/54 L 96/58 L Pulse Oximetry 95 94 L 97 07/14/18 20:10 07/15/18 00:00 07/15/18 04:00 Temperature 98.4 F 98.0 F Pulse Rate 64 58 L Respiratory Rate 16 16 16 Blood Pressure 100/61 95/61 L Pulse Oximetry 94 L 93 L 07/15/18 07:45 07/15/18 08:55 Temperature 97.9 F 98.9 F Pulse Rate 66 51 L Respiratory Rate 20 16 Blood Pressure 118/72 99/51 L Pulse Oximetry 92 L 95 Intake & Output 07/14/18 07/15/18 07/15/18 18:59 06:59 18:59 Intake Total 960 / 960 Output Total 700 / 700 Balance 260 / 260 Weight 51.1 kg Intake: Oral 960 / 960 Output: Urine 700 / 700 Other: # Voids 4 Date of Last Bowel Movement 07/13/18 07/13/18 # Bowel Movements 1 <Cathie Holguin - 07/15/18 09:26> Narrative: GENERAL: Thin white female sitting up in bed, in NAD CARDIOVASCULAR: Regular rate and rhythm. RESPIRATORY: No accessory muscle use. Clear to auscultation. Breath sounds equal bilaterally. GASTROINTESTINAL: Abdomen soft, minimal tenderness of RUQ to moderate palpation. Abdomen distended MUSCULOSKELETAL: No edema NEUROLOGICAL: Awake and alert. <Cathie Holguin - 07/15/18 09:26> Assessment and Plan - Assessment (1) Calculus, ureteral Code(s): N20.1 - Calculus of ureter Status: Acute (2) Ascites Code(s): R18.8 - Other ascites Status: Acute (3) Positive blood culture Code(s): R78.81 - Bacteremia Status: Acute (4) Bilateral leg weakness Code(s): R29.898 - Other symptoms and signs involving the musculoskeletal system Status: Acute (5) Thickening of wall of gallbladder Code(s): K82.8 - Other specified diseases of gallbladder Status: Acute (6) Nutrition, metabolism, and development symptoms Code(s): R63.8 - Other symptoms and signs concerning food and fluid intake Status: Acute (7) DVT prophylaxis Status: Acute <Glenn Flynn - 07/15/18 14:57> (1) Calculus, ureteral Code(s): N20.1 - Calculus of ureter Status: Acute Plan: Patient with RUQ abdominal pain. No right flank pain on exam. CT abdomen pelvis on admission shows right kidney with diffuse cortical thinning related to probable colonic obstruction, calcified nonobstructing right renal calculi. Severe ureteropelvicaliectasis on the right secondary to a large calcified obstructing distal ureteral calculus at the S1 level measuring 16 mm. 4.7 cm nonspecific left adrenal nodule -Urology consulted, appreciate recommendations -POD3 s/p Cystoscopy, right retrograde pyelogram and right ureteral stent placement -Conservative management of left adrenal nodule with follow-up imaging -Wound culture sample taken from right renal area now growing Klebsiella, pansensitive -Augmentin 875 twice daily (2) Ascites Code(s): R18.8 - Other ascites Status: Acute Plan: Patient with abdominal distention along with LE edema for the past 2 weeks. Has history of alcoholism. Cirrhosis not seen on abdominal CT (fatty liver) BNP WNL at 42 Ultrasound abdomen showed coarsened parenchymal echotexture with nodular hepatic contour. These findings can be seen in the setting of cirrhosis. -Spironolactone 100 mg p.o. daily, furosemide 40 mg p.o. daily, KCl 20 mEq p.o. daily (due to previous hypokalemia and furosemide) -Ordered diagnostic paracentesis, likely will be done today -Will await results of paracentesis to determine next steps in treatment -Hepatitis B panel nonreactive except for surface antibody indicating previous vaccination -B12 and folate within normal limits -AFP ordered (3) Positive blood culture Code(s): R78.81 - Bacteremia Status: Acute Plan: Gram-positive organism in single blood culture, staph epidermidis -Patient afebrile with no increased white count, clinically stable -Repeat blood cultures drawn, no growth times 2 days -Augmentin for treatment of Klebsiella from renal sample (4) Bilateral leg weakness Code(s): R29.898 - Other symptoms and signs involving the musculoskeletal system Status: Acute Plan: Patient with chronic LE weakness that worsened a week ago. Also having urinary and fecal incontinence for the past couple of days. Rule out cauda equina syndrome. Balance and gait issues are likely due to lingering effects of Wernicke's Korsakoff syndrome. MRI lumbar spine with and without contrast on admission does not show any indication of compression on the conus medullaris or cauda equina -Continue to evaluate for other etiologies of patient's bilateral weakness (5) Thickening of wall of gallbladder Code(s): K82.8 - Other specified diseases of gallbladder Status: Acute Plan: CT abdomen pelvis shows Thick-walled nondistended gallbladder with pericholecystic fluid. Ultrasound of the abdomen showed bladder wall thickening, no evidence of cholelithiasis, negative sonographic Cherry sign. Relation of the common bile duct to 14 mm. Total bilirubin elevated at 1.6 Alkaline phosphatase elevated at 253 -Patient is having RUQ abdominal pain, but no fevers, no leukocytosis. -We will continue to monitor to determine whether further studies should be performed (6) Nutrition, metabolism, and development symptoms Code(s): R63.8 - Other symptoms and signs concerning food and fluid intake Status: Acute Plan: Fluids: tolerating PO Electrolytes: monitor and replete as needed Nutrition: N.p.o. in anticipation of paracentesis today GI Prophylaxis: None indicated at this time (7) DVT prophylaxis Status: Acute Plan: DVT Prophylaxis: Early ambulation. Heparin 5000U subQ q12hr <Cathie Holguin - 07/15/18 09:17> - Assessment and Plan Discussed Condition With: Dr Flynn <Cathie Holguin - 07/15/18 09:26> - Attending Attestation The exam, history, and the medical decision-making described in the above note were completed with the assistance of the resident physician. I reviewed and agree with the findings presented. I attest that I had a [id number] encounter with the patient on the same day, and personally performed and documented my assessment and findings in the medical record. Went for diagnostic paracentesis today and she had already been diuresed too much for it. Still has RUQ pain after eating. ascites and edema gone. Continue diuretics. stop K. Continue augmentin for renal cultures. Will get MRCP. If no further intervention needed she will need to have outpatient follow up and could be discharged tomorrow. Cirrhosis: assumed 2/2 EtOH, but checking MRCP and AFP. cannot do diagnostic tap anymore. pending tomorrow's lytes will keep with spironolactone/furosemide at 100/40 will need to establish with PCP and probably outpatient referral to GI Nephrolithiasis s/p cystoscopy and stent placement. urology follow up for stent removal. PO augmentin dispo: declining HH, given options for establishing care with pcp, wants someone in [place] <Glenn Flynn - 07/15/18 14:57>
[2018-07-15 10:45] LABS: Hematocrit 32.5 % (35.0-46.0); Hemoglobin 11.4 gm/dL (11.6-15.3); Mean Corpuscular HGB Conc 35.2 % (32.0-36.0); Mean Corpuscular Hemoglobin 38.4 pg (27.0-34.0); Mean Corpuscular Volume 109.1 fL (80.0-100.0); Mean Platelet Volume 7.8 fL (7.0-11.0); Platelet Count 175 th/mm3 (150-450); Red Blood Count 2.98 mil/mm3 (4.00-5.30); Red Cell Distribution Width 13.9 % (11.6-17.2); White Blood Count 4.1 th/mm3 (4.0-11.0)
[2018-07-15 11:12] LABS: Alkaline Phosphatase 236 U/L (45-117)
[2018-07-15 11:16] LABS: Alanine Aminotransferase 26 U/L (10-53); Albumin 2.4 g/dL (3.4-5.0); Anion Gap 5 meq/L (5-15); Aspartate Aminotransferase 43 U/L (15-37); Blood Urea Nitrogen 8 mg/dL (7-18); Calcium 7.7 mg/dL (8.5-10.1); Carbon Dioxide 28.3 meq/L (21.0-32.0); Chloride 106 meq/L (98-107); Glomerular Filtration Rate 83 mL/min (>89); Glucose,Random 97 mg/dL (74-106); Potassium 4.2 meq/L (3.5-5.1); Sodium 139 meq/L (136-145)
--- NOTE | 2018-07-15 14:19 | US ---
EXAM DATE: 07/15/2018 10:46 AM EST AGE/SEX: 53 years / Female INDICATIONS: Ascites. CLINICAL DATA: This is the patient's initial encounter. Patient reports that signs and symptoms have been present for 3 days and indicates a pain score of 1/10. MEDICAL/SURGICAL HISTORY: Renal calculi. SVT. None. COMPARISON: [facility] [place], [place] ABDOMEN COMPLETE, 07/11/2018. . FINDINGS: Masses: None Fluid Collections: There is only trace ascites insufficient for aspiration. Other: None. CONCLUSION: 1. Inadequate fluid for paracentesis Electronically signed by: Manjinder Brown MD Board Certified Radiologist 07/15/2018 2:18 PM EST
[2018-07-16] MEDS: Heparin - SQ 10,000 UNITS/ML Vial SQ SCH (05:14)
--- NOTE | 2018-07-16 09:13 | MR ---
EXAM DATE: 07/16/2018 8:47 AM EST AGE/SEX: 53 years / Female INDICATIONS: Abdominal pain. Right upper quadrant pain. CLINICAL DATA: This is the patient's subsequent encounter. Patient reports that signs and symptoms h ave been present for 4 - 6 days and indicates a pain score of 4/10. MEDICAL/SURGICAL HISTORY: . kidney stones . finger surgery COMPARISON: [facility] [place] ABDOM[place] & PELVIS W CONTRAST, 07/11/2018. . TECHNIQUE: Multiplanar, multisequence images of the abdomen were obtained without contrast including dedicated cholangiographic images. FINDINGS: Liver: The liver is normal in size measuring 14.1 cm. It demonstrates signal loss on out of phase im aging indicating steatosis with calculated fat fraction of 27%. No focal lesion is identified on this noncontrast examination. Intrahepatic Bile Ducts: The central intrahepatic bile ducts are mildly dilated. Peripheral intrahep atic ducts are not distended. Common Bile Duct: The common hepatic duct measures 11 mm, proximal common bile duct measures 8 mm, a nd distal common bile duct measures 3.7 and 8 mm and tapers slightly at the ampulla. No distal obstru cting stone or mass is identified within the common duct. Gallbladder: Gallbladder is distended with a diffuse wall edema. There are no stones. Pancreas: Pancreas demonstrates diffuse dilatation of the main pancreatic duct measuring up to 8 mm in the pancreatic head. There are ectatic sidebranches throughout the pancreas. Within the main duct in the head there are 2 stones measuring approximately 5 mm with a suspected smaller adjacent stones. The recent CT documented diffuse pancreatic calcification. Other: There is a small volume of free fluid within the abdomen. Right kidney is atrophic and demonst rates cortical thinning and hydronephrosis. The visualized right ureter demonstrates wall edema/thick ening. There is decreased T2 signal along the collecting system in the upper pole which may indicate hemosiderin deposition. Left kidney demonstrates no significant abnormality. Spleen is within normal limits and the aorta is nonaneurysmal. There are small bilateral pleural effusions, left larger than right. These pleural effusions are new since the prior CT. There is a right adrenal gland mass measur ing approximately 2.1 x 1.2 cm. It is difficult to visualize on in and out of phase imaging but does not definitively demonstrate signal loss on out of phase imaging. CONCLUSION: 1. Abnormally dilated common bile duct from uncertain etiology. No distal obstructing stone or mass is identified on this examination. 2. Abnormal pancreas demonstrating features characteristic of chronic pancreatitis with a dilated ma in duct containing at least 2 stones in the region of the pancreatic head measuring approximately 5 m m each. 3. Diffuse gallbladder wall edema. This may be related to fluid imbalance given the remaining findin gs. 4. Small volume of free fluid in the abdomen with new small bilateral pleural effusions. 5. Atrophic right kidney with cortical thinning and hydronephrosis. There is right ureteral wall guillermo ma/thickening. 6. Right adrenal gland mass is stable but not well visualized or evaluated on this examination. It d oes not definitively meet criteria for an adenoma. Therefore, suggest follow-up adrenal protocol CT i n 3-6 months for further evaluation. Electronically signed by: Adelso Wesley MD Board Certified Radiologist 07/16/2018 9:11 AM EST
[2018-07-16 09:33] LABS: Hematocrit 35.8 % (35.0-46.0); Hemoglobin 12.2 gm/dL (11.6-15.3); Mean Corpuscular HGB Conc 34.1 % (32.0-36.0); Mean Corpuscular Hemoglobin 37.5 pg (27.0-34.0); Mean Platelet Volume 7.7 fL (7.0-11.0); Platelet Count 207 th/mm3 (150-450); Red Blood Count 3.26 mil/mm3 (4.00-5.30); Red Cell Distribution Width 14.1 % (11.6-17.2); White Blood Count 4.5 th/mm3 (4.0-11.0)
[2018-07-16 10:03] LABS: Alanine Aminotransferase 25 U/L (10-53); Albumin 2.6 g/dL (3.4-5.0); Anion Gap 4 meq/L (5-15); Aspartate Aminotransferase 34 U/L (15-37); Blood Urea Nitrogen 8 mg/dL (7-18); Calcium 8.2 mg/dL (8.5-10.1); Carbon Dioxide 31.1 meq/L (21.0-32.0); Chloride 104 meq/L (98-107); Glomerular Filtration Rate 83 mL/min (>89); Glucose,Random 95 mg/dL (74-106); Potassium 4.2 meq/L (3.5-5.1); Sodium 139 meq/L (136-145)
[2018-07-16 10:06] LABS: Alkaline Phosphatase 266 U/L (45-117); Total Protein 6.4 g/dL (6.4-8.2)
[2018-07-16] MEDS: Amoxicillin/Clavulanate 875/125 MG Tablet PO SCH (10:33)
[2018-07-16] MEDS: Senna/Docusate Sodium 8.6/50 MG Tablet PO SCH (10:34)
[2018-07-16] MEDS: Furosemide 40 MG Tablet PO SCH (10:34)
--- NOTE | 2018-07-16 12:07 | P.PNFP ---
Addendum entered and electronically signed by Kendal Monzon MD, R2 07/16/18 15:29: Received a call that patient fell in her room and was found on the fall by staff. Went to evaluate her. She states that she was in a hurry to get to the bathroom and tripped over her feet. She then had a BM all over herself. She fell on her butt and is in no pain. She wants to leave the hospital. She refuses to work with PT and does not want them to come to her home. She feels that she will be able to prevent herself from falling at home and will be safer. She was given the option of staying for one more day to work with PT for fall prevention or go home with home health PT. She declined both options and would rather sign out AMA. Will allow pt to leave so she can leave with her prescriptions instead of AMA without them and strongly advised for her to stay in the hospital or have PT instead. [facility] Dr. Flynn Original Note: Subjective Interval history: Patient seen and examined this morning. She states that she is doing well and is ready to go home. She is still having some RUQ abdominal pain, but tolerates it well. No chest pain, no shortness of breath, no issues with walking. <Kendla Rodriguez - 07/16/18 14:41> Results - Labs Result diagrams: 07/16/18 08:51 07/16/18 08:51 <Glenn Flynn - 07/16/18 21:27> Abnormal lab results 07/16/18 07/16/18 Range/Units 08:51 08:51 RBC 3.26 L (4.00-5.30) mil/mm3 MCV 110.0 H (80.0-100.0) fL MCH 37.5 H (27.0-34.0) pg Anion Gap 4 L (5-15) meq/L Estimated GFR 83 L (>89) mL/min Calcium 8.2 L (8.5-10.1) mg/dL Alkaline Phosphatase 266 H (45-117) U/L Albumin 2.6 L (3.4-5.0) g/dL Short CBC 07/16/18 Range/Units 08:51 WBC 4.5 (4.0-11.0) th/mm3 Hgb 12.2 (11.6-15.3) gm/dL Hct 35.8 (35.0-46.0) % Plt Count 207 (150-450) th/mm3 [facility] 07/16/18 08:51 Sodium 139 Potassium 4.2 Chloride 104 Carbon Dioxide 31.1 BUN 8 Creatinine 0.73 Calcium 8.2 L Liver Function 07/16/18 Range/Units 08:51 Total Bilirubin 1.0 (0.2-1.0) mg/dL AST 34 (15-37) U/L ALT 25 (10-53) U/L Alkaline Phosphatase 266 H (45-117) U/L Albumin 2.6 L (3.4-5.0) g/dL <Glenn Flynn - 07/16/18 21:27> Abnormal lab results 07/16/18 07/16/18 Range/Units 08:51 08:51 RBC 3.26 L (4.00-5.30) mil/mm3 MCV 110.0 H (80.0-100.0) fL MCH 37.5 H (27.0-34.0) pg Anion Gap 4 L (5-15) meq/L Estimated GFR 83 L (>89) mL/min Calcium 8.2 L (8.5-10.1) mg/dL Alkaline Phosphatase 266 H (45-117) U/L Albumin 2.6 L (3.4-5.0) g/dL Short CBC 07/16/18 Range/Units 08:51 WBC 4.5 (4.0-11.0) th/mm3 Hgb 12.2 (11.6-15.3) gm/dL Hct 35.8 (35.0-46.0) % Plt Count 207 (150-450) th/mm3 [facility] 07/16/18 08:51 Sodium 139 Potassium 4.2 Chloride 104 Carbon Dioxide 31.1 BUN 8 Creatinine 0.73 Calcium 8.2 L Liver Function 07/16/18 Range/Units 08:51 Total Bilirubin 1.0 (0.2-1.0) mg/dL AST 34 (15-37) U/L ALT 25 (10-53) U/L Alkaline Phosphatase 266 H (45-117) U/L Albumin 2.6 L (3.4-5.0) g/dL <Kendal Rodriguez - 07/16/18 12:07> - Imaging Impressions Cholangiopancreatography MRI 07/16/18 00:00 CONCLUSION: 1. Abnormally dilated common bile duct from uncertain etiology. No distal obstructing stone or mass is identified on this examination. 2. Abnormal pancreas demonstrating features characteristic of chronic pancreatitis with a dilated main duct containing at least 2 stones in the region of the pancreatic head measuring approximately 5 mm each. 3. Diffuse gallbladder wall edema. This may be related to fluid imbalance given the remaining findings. 4. Small volume of free fluid in the abdomen with new small bilateral pleural effusions. 5. Atrophic right kidney with cortical thinning and hydronephrosis. There is right ureteral wall edema/thickening. 6. Right adrenal gland mass is stable but not well visualized or evaluated on this examination. It does not definitively meet criteria for an adenoma. Therefore, suggest follow-up adrenal protocol CT in 3-6 months for further evaluation. <Glenn Flynn - 07/16/18 21:27> Impressions Abdomen Ultrasound 07/15/18 00:00 CONCLUSION: 1. Inadequate fluid for paracentesis Cholangiopancreatography MRI 07/16/18 00:00 CONCLUSION: 1. Abnormally dilated common bile duct from uncertain etiology. No distal obstructing stone or mass is identified on this examination. 2. Abnormal pancreas demonstrating features characteristic of chronic pancreatitis with a dilated main duct containing at least 2 stones in the region of the pancreatic head measuring approximately 5 mm each. 3. Diffuse gallbladder wall edema. This may be related to fluid imbalance given the remaining findings. 4. Small volume of free fluid in the abdomen with new small bilateral pleural effusions. 5. Atrophic right kidney with cortical thinning and hydronephrosis. There is right ureteral wall edema/thickening. 6. Right adrenal gland mass is stable but not well visualized or evaluated on this examination. It does not definitively meet criteria for an adenoma. Therefore, suggest follow-up adrenal protocol CT in 3-6 months for further evaluation. <Shane MonzonKendal G - 07/16/18 12:07> Physical Exam Vital signs: Vital Signs 07/16/18 00:00 07/16/18 00:01 07/16/18 04:00 Temperature 98.7 F Pulse Rate 63 70 79 Respiratory Rate 17 Blood Pressure 120/78 Pulse Oximetry 96 07/16/18 04:25 07/16/18 08:00 07/16/18 11:15 Temperature 98.6 F 97.9 F Pulse Rate 61 61 Respiratory Rate 16 16 Blood Pressure 138/82 97/65 L Pulse Oximetry 96 97 98 07/16/18 11:53 07/16/18 15:17 Temperature 97.8 F 97.8 F Pulse Rate 73 73 Respiratory Rate 17 17 Blood Pressure 119/85 119/85 Pulse Oximetry 93 L 93 L Intake & Output 07/16/18 07/16/18 07/17/18 06:59 18:59 06:59 Intake Total 120 / 120 Balance 120 / 120 Weight 51 kg Intake: Oral 120 / 120 Other: # Voids 3 1 Date of Last Bowel Movement 07/15/18 <Glenn Flynn - 07/16/18 21:27> Vital Signs 07/15/18 14:55 07/15/18 20:00 07/16/18 00:00 Temperature 98.2 F 97.8 F Pulse Rate 63 72 63 Respiratory Rate 20 16 Blood Pressure 90/51 L 97/59 L Pulse Oximetry 96 96 07/16/18 00:01 07/16/18 04:00 07/16/18 04:25 Temperature 98.7 F 98.6 F Pulse Rate 70 79 61 Respiratory Rate 17 16 Blood Pressure 120/78 138/82 Pulse Oximetry 96 96 07/16/18 08:00 07/16/18 11:15 07/16/18 11:53 Temperature 97.9 F 97.8 F Pulse Rate 61 73 Respiratory Rate 16 17 Blood Pressure 97/65 L 119/85 Pulse Oximetry 97 98 93 L Intake & Output 07/15/18 07/16/18 07/16/18 18:59 06:59 18:59 Intake Total 240 / 240 120 / 120 Output Total 8 / 8 Balance 232 / 232 120 / 120 Weight 51 kg Intake: Oral 240 / 240 120 / 120 Output: Urine Other: # Voids 3 1 <Kendal Rodriguez - 07/16/18 12:07> Narrative: GENERAL: Thin white female sitting up in bed, in NAD CARDIOVASCULAR: Regular rate and rhythm. RESPIRATORY: No accessory muscle use. Clear to auscultation. Breath sounds equal bilaterally. GASTROINTESTINAL: Abdomen soft, minimal tenderness of RUQ to moderate palpation. Abdomen minimally distended MUSCULOSKELETAL: No edema NEUROLOGICAL: Awake and alert. <Kendal Rodriguez G - 07/16/18 14:41> Assessment and Plan - Assessment (1) Calculus, ureteral Code(s): N20.1 - Calculus of ureter Status: Acute (2) Ascites Code(s): R18.8 - Other ascites Status: Acute (3) Positive blood culture Code(s): R78.81 - Bacteremia Status: Acute (4) Bilateral leg weakness Code(s): R29.898 - Other symptoms and signs involving the musculoskeletal system Status: Acute (5) Thickening of wall of gallbladder Code(s): K82.8 - Other specified diseases of gallbladder Status: Acute (6) Nutrition, metabolism, and development symptoms Code(s): R63.8 - Other symptoms and signs concerning food and fluid intake Status: Acute (7) DVT prophylaxis Status: Acute <Glenn Flynn - 07/16/18 21:27> (1) Calculus, ureteral Code(s): N20.1 - Calculus of ureter Status: Acute Plan: Patient with RUQ abdominal pain. No right flank pain on exam. CT abdomen pelvis on admission shows right kidney with diffuse cortical thinning related to probable colonic obstruction, calcified nonobstructing right renal calculi. Severe ureteropelvicaliectasis on the right secondary to a large calcified obstructing distal ureteral calculus at the S1 level measuring 16 mm. 4.7 cm nonspecific left adrenal nodule -Urology consulted, appreciate recommendations -POD4 s/p Cystoscopy, right retrograde pyelogram and right ureteral stent placement -Conservative management of left adrenal nodule with follow-up imaging -Wound culture sample taken from right renal area now growing Klebsiella, pansensitive -Augmentin 875 twice daily (2) Ascites Code(s): R18.8 - Other ascites Status: Acute Plan: Patient with abdominal distention along with LE edema for the past 2 weeks. Has history of alcoholism. Cirrhosis not seen on abdominal CT (fatty liver) BNP WNL at 42 Ultrasound abdomen showed coarsened parenchymal echotexture with nodular hepatic contour. These findings can be seen in the setting of cirrhosis. -Spironolactone 100 mg p.o. daily, furosemide 40 mg p.o. daily, KCl 20 mEq p.o. daily (due to previous hypokalemia and furosemide) -Ordered diagnostic paracentesis, likely will be done today -Will await results of paracentesis to determine next steps in treatment -Hepatitis B panel nonreactive except for surface antibody indicating previous vaccination -B12 and folate within normal limits -AFP ordered (3) Positive blood culture Code(s): R78.81 - Bacteremia Status: Acute Plan: Gram-positive organism in single blood culture, staph epidermidis -Patient afebrile with no increased white count, clinically stable -Repeat blood cultures drawn, no growth times 2 days -Augmentin for treatment of Klebsiella from renal sample (4) Bilateral leg weakness Code(s): R29.898 - Other symptoms and signs involving the musculoskeletal system Status: Acute Plan: Patient with chronic LE weakness that worsened a week ago. Also having urinary and fecal incontinence for the past couple of days. Rule out cauda equina syndrome. Balance and gait issues are likely due to lingering effects of Wernicke's Korsakoff syndrome. MRI lumbar spine with and without contrast on admission does not show any indication of compression on the conus medullaris or cauda equina -Continue to evaluate for other etiologies of patient's bilateral weakness (5) Thickening of wall of gallbladder Code(s): K82.8 - Other specified diseases of gallbladder Status: Acute Plan: CT abdomen pelvis shows Thick-walled nondistended gallbladder with pericholecystic fluid. Ultrasound of the abdomen showed bladder wall thickening, no evidence of cholelithiasis, negative sonographic Cherry sign. Relation of the common bile duct to 14 mm. Total bilirubin elevated at 1.6 Alkaline phosphatase elevated at 253 -Patient is having RUQ abdominal pain, but no fevers, no leukocytosis. -We will continue to monitor to determine whether further studies should be performed -MRCP today showed an abnormally dilated common bile duct from uncertain etiology. No distal obstructing stone or mass (6) Nutrition, metabolism, and development symptoms Code(s): R63.8 - Other symptoms and signs concerning food and fluid intake Status: Acute Plan: Fluids: tolerating PO Electrolytes: monitor and replete as needed Nutrition: regular diet GI Prophylaxis: None indicated at this time (7) DVT prophylaxis Status: Acute Plan: DVT Prophylaxis: Early ambulation. Heparin 5000U subQ q12hr <Kendal Rodriguez - 07/16/18 14:32> - Assessment and Plan Discharge Planning: Discharge home today <Kendal Rodriguez 07/16/18 14:41> - Attending Attestation The exam, history, and the medical decision-making described in the above note were completed with the assistance of the resident physician. I reviewed and agree with the findings presented. I attest that I had a [id number] encounter with the patient on the same day, and personally performed and documented my assessment and findings in the medical record. MRCP showed dilated CBD, probably from previous ERCP. no evidence of mass. Will send home with lasix 20/spironolactone 50. Gave options for PCP follow up, she has insurance. She can get to GI from there. Also needs urology follow up. Notified of fall, was encouraged to go home with HH and home PT per recommendations but declined. will not make her stay in the hospital for that but she understands risks at home including hip fracture, head bleed, and . <Glenn Flynn - 07/16/18 21:27>
--- NOTE | 2018-07-16 13:14 | P.DCO ---
- Physical Therapy Order: Evaluate and treat, Improve ambulation, Strength and gait training - Home Health Aide Order: To assist in: bill distributor and meal prep - Case Management Consult Case Management Consult-Home Health: Yes - Certification I have seen patient Leelee Justin on 07/16/18. My clinical findings support the need for the requested home health care services because: Limited mobility due to disease progression, Deconditioned with increased weakness, Limited ability to care for self I certify that my clinical findings support that this patient is homebound because: Unsteady gait/balance, Unsafe to leave home unassisted, Unable to use public transportation
== END 2018-07-16 16:05 | disposition home health service (06) | DRG 660 ==
LOC: NEPC 12:15 → NEDA 15:34 → N07 18:05
PROVIDERS: ADMIT Family Medicine; ATTEND Family Medicine
CPT/HCPCS: 71010; 71045; 72158; 74177; 74181; 74420; 76377; 76700; 76705; 80053; 80307; 81001; 82105; 82550; 82607; 82746; 83520; 83690; 83735; 83880; 84425; 84484; 85025; 85027; 85610; 85730; 86317; 86403; 86704; 86705; 86803; 87015; 87040; 87070; 87077; 87086; 87102; 87116; 87186; 87205; 87206; 87340; 93005; 97110; 97116; 97162; 97167; 97530; 97535; 99285; A4646; A9585; C1769; J1644; J2250; J2543; J3010; J7030; J7040; Q9950; Q9965; Q9967